=== PATIENT | female | born 1940 | race Caucasian/White ===

== ENCOUNTER 2019-05-08 19:54 | Inpatient (IN) | payer MEDICARE, MEDICAID, SELFPAY | END 2019-05-10 13:36 | disposition skilled nursing facility (03) | DRG 190 | LOC: MEDSURG 05-10 09:31 | PROVIDERS: Admitting Provider Internal Medicine; Emergency Provider Emergency Medicine; Family Provider Family Medicine; PCP Family Medicine; Referring Provider Family Medicine; Visit Provider Internal Medicine | DX: J44.1 Chronic obstructive pulmonary disease with (acute) exacerbation (principal); J96.21 Acute and chronic respiratory failure with hypoxia; J96.22 Acute and chronic respiratory failure with hypercapnia; Z68.41 Body mass index [BMI] 40.0-44.9, adult; I10 Essential (primary) hypertension; G89.29 Other chronic pain; M54.9 Dorsalgia, unspecified; E03.9 Hypothyroidism, unspecified; I25.10 Atherosclerotic heart disease of native coronary artery without angina pectoris; G47.33 Obstructive sleep apnea (adult) (pediatric); E78.5 Hyperlipidemia, unspecified; K21.9 Gastro-esophageal reflux disease without esophagitis; F41.8 Other specified anxiety disorders; D64.9 Anemia, unspecified; Z87.891 Personal history of nicotine dependence; E66.9 Obesity, unspecified ==

== ENCOUNTER 2019-07-12 10:40 | Inpatient (IN) | payer MEDICARE, MEDICAID, SELFPAY ==
[2019-07-12] VITALS (16 sets, daily range): BP systolic 85–152; BP diastolic 60–96; PULSE 90–109; RESP 15–25; TEMP 36.4–36.6; O2SAT 93–99; BMI 44.1
--- NOTE | 2019-07-12 10:45 | ED_ITS ---
Entered by Luz Blas, acting as scribe for Santiago Bower DO HPI - Altered Mental Status General: Chief Complaint: Altered Mental Status Stated Complaint: AMS Time Seen by Provider: 07/12/19 10:42 Source: EMS Mode of arrival: EMS Limitations: altered mental status History of Present Illness: HPI narrative: 78 yo female presents with altered mental status per nursing staff. per EMS the pt has not been wearing her C-pap machine at the detention. MD complaint: altered mental status and decreased responsiveness Onset (ago): day(s) (today , found by nursing staff) Timing confirmed by: other (nursing staff) Severity: moderate Consistency of symptoms: Getting Worse Associated symptoms: Reports other (altered mental status from not wearing COPD) Treatments prior to arrival: oxygen and other Review of Systems General: Reports: 10 or more systems reviewed and unremarkable except in HPI and below, ROS unobtainable due to medical condition and ROS unobtainable due to mental status [facility] ED PFSH: Medical History (Updated 07/12/19 @ 11:59 by Santiago Bower DO) History of COPD Social History Smoking and tobacco status: unknown if ever smoked Physical Exam Const: COMMON NORMALS: oriented x3 and alert HENMT: COMMON NORMALS: normocephalic, head/scalp atraumatic, hearing grossly normal bilaterally, external ears normal, EAC's normal, TM's normal bilaterally, external nose normal, nasal mucous membranes and turbinates normal, moist oral mucous membranes, oropharynx normal, dentition normal and gingiva normal HEAD & SCALP: normocephalic and atraumatic NOSE: external nose normal and nasal mucous membranes and turbinates normal EXTERNAL EAR: Yes external ears normal EXTERNAL AUDITORY CANAL: EAC's normal TYMPANIC MEMBRANE: TM's normal bilaterally Eye: COMMON NORMALS: PERRL, EOMs intact bilaterally, conjunctivae normal, no scleral icterus, no papilledema, normal visual weaver by confrontation and fundi normal bilaterally CONJUNCTIVA: Yes conjunctivae normal PUPIL: Yes PERRL DIRECT OPHTHALMOSCOPY: Yes no papilledema and Yes fundi normal bilaterally Neck/C-Spine: COMMON NORMALS: full ROM, no lymphadenopathy, supple, no meningeal signs, no JVD, thyroid normal and no carotid bruits THYROID: thyroid normal Chest: COMMONS NORMALS: inspection of chest normal and palpation of chest normal Cardio: COMMON NORMALS: no JVD, regular rate, regular rhythm, S1 normal heart sound, S2 normal heart sound, no gallops, no clicks, no murmurs, no rub and peripheral pulses 2+ throughout RATE: regular rate RHYTHM: regular rhythm HEART SOUNDS: S1 normal and S2 normal PERIPHERAL PULSES: pulses 2+ throughout GI: COMMON NORMALS: normal to inspection, nondistended, normoactive bowel sounds, soft to palpation, non-tender, no hepatosplenomegaly, no masses and no bruits PALPATION: Yes soft and Yes no hepatosplenomegaly : COMMON NORMALS: Yes no CVA tenderness and Yes external appearance normal BLADDER/KIDNEY EXAM: Yes no CVA tenderness Back/Pelvis: COMMON NORMALS: no CVA tenderness, thoracic and lumbar spine normal to inspection, no thoracic nor lumbar tenderness, thoraco-lumbar ROM normal and straight leg raise negative bilaterally Extremity: COMMON NORMALS: normal to inspection, full ROM, normal capillary refill, no joint enlargement, no clubbing, cyanosis or edema, no calf tenderness and no pedal edema Neuro: COMMON NORMALS: oriented x3 SENSORIUM/ORIENTATION: Yes alert MENINGEAL SIGNS: Yes no meningeal signs Skin: COMMON NORMALS: no rashes or lesions noted, no wounds, skin turgor normal, no jaundice, no petechiae and no mottling GENERAL SKIN EXAM: no rashes or lesions noted and turgor normal Course Vital Signs: Vital signs: Vital Signs Temperature 97.6 F 07/12/19 10:48 Pulse Rate 93 07/12/19 11:09 Respiratory Rate 22 H 07/12/19 10:48 Blood Pressure 124/76 07/12/19 10:48 Pulse Oximetry 94 07/12/19 11:09 MDM - Altered Mental Status Lab Data: Labs: Lab Results 07/12/19 07/12/19 07/12/19 Range/Units 10:42 11:10 11:13 WBC 11.0 H (4.0-10.0) 10^3/ uL RBC 4.09 L (4.1-5.3) 10^6/u L Hgb 12.4 (11.5-15.3) g/dL Hct 42.7 (37.0-47.0) % MCV 104.4 H (81-99) fL MCH 30.3 (28.0-34.0) pg MCHC 29.0 L (30.0-36.0) g/dL RDW 13.9 (12.1-15.1) % Plt Count 232 (130-400) 10^3/c mm MPV 11.0 H (7.4-10.4) fL Neut % (Auto) 82.5 % Lymph % (Auto) 8.5 % Wilkin % (Auto) 7.6 % Eos % (Auto) 0.5 % Baso % (Auto) 0.4 % Neut # (Auto) 9.1 H (1.8-7.7) 10^3/u L Lymph # (Auto) 0.9 (0.8-4.8) 10^3/u L Wilkin # (Auto) 0.8 (0.2-0.9) 10^3/u L Eos # (Auto) 0.1 (0.0-0.8) 10^3/u L Baso # (Auto) 0.0 (0.0-0.1) 10^3/u L Nucleated RBC % (a uto) 0 % Nucleated RBCs # 0.0 /100WBC Specimen Type Arterial Sample Site Radial, left ABG pH 7.27 L (7.35-7.45) ABG pCO2 97.1 H* (35-45) mmHg ABG pO2 65.1 L (80.0-100.0) mmH g ABG HCO3 44.3 H (22-26) mmol/L ABG Base Excess 13.0 H (-2.0-2.0) mmol/ L Casey Test Pos Hematocrit 40.7 (37-47) % O2 Delivery Device Nc O2 Liters/Min 3.0 % FiO2 32.0 % Chief Gauger ID gd Sodium (136-145) mmol/L Potassium (3.5-5.1) mmol/L Chloride (98-107) mmol/L Carbon Dioxide (22-29) mmol/L Anion Gap (5-19) BUN (8-23) mg/dL Creatinine (0.5-0.9) mg/dL Glucose (65-115) mg/dL Lactate (0.5-2.2) mmol/L Calcium (8.5-10.5) mg/dL Total Bilirubin (0.15-1.2) mg/dL AST (0-32) U/L ALT (0-33) U/L Alkaline Phosphata se (35-105) IU/L NT-Pro-B Natriuret Pep (0-450) pg/mL Total Protein (6.6-8.7) g/dL Albumin (3.5-5.2) g/dL Globulin (1.3-4.6) g/dL TSH (0.27-4.20) uIU/ mL Urine Color Yellow (Yellow) Urine Appearance Clear (CLEAR) Urine pH 5 (5-7) Ur Specific Gravit y 1.025 (1.005-1.030) Urine Protein Neg (Negative) Urine Glucose (UA) Norm (Normal) Urine Ketones Negative (Negative) Urine Blood Neg (Negative) Urine Nitrate Negative (Negative) Urine Bilirubin Neg (NEGATIVE) Urine Urobilinogen Norm (Negative) mg/dL Ur Leukocyte Estephanie ase Negative (Negative) 07/12/19 07/12/19 Range/Units 11:13 11:13 WBC (4.0-10.0) 10^3/ uL RBC (4.1-5.3) 10^6/u L Hgb (11.5-15.3) g/dL Hct (37.0-47.0) % MCV (81-99) fL MCH (28.0-34.0) pg MCHC (30.0-36.0) g/dL RDW (12.1-15.1) % Plt Count (130-400) 10^3/c mm MPV (7.4-10.4) fL Neut % (Auto) % Lymph % (Auto) % Wilkin % (Auto) % Eos % (Auto) % Baso % (Auto) % Neut # (Auto) (1.8-7.7) 10^3/u L Lymph # (Auto) (0.8-4.8) 10^3/u L Wilkin # (Auto) (0.2-0.9) 10^3/u L Eos # (Auto) (0.0-0.8) 10^3/u L Baso # (Auto) (0.0-0.1) 10^3/u L Nucleated RBC % (a uto) % Nucleated RBCs # /100WBC Specimen Type Sample Site ABG pH (7.35-7.45) ABG pCO2 (35-45) mmHg ABG pO2 (80.0-100.0) mmH g ABG HCO3 (22-26) mmol/L ABG Base Excess (-2.0-2.0) mmol/ L Casey Test Hematocrit (37-47) % O2 Delivery Device O2 Liters/Min % FiO2 % Chief Gauger ID Sodium 138 (136-145) mmol/L Potassium 5.0 (3.5-5.1) mmol/L Chloride 92 L (98-107) mmol/L Carbon Dioxide 37 H (22-29) mmol/L Anion Gap 14.0 (5-19) BUN 8 (8-23) mg/dL Creatinine 0.6 (0.5-0.9) mg/dL Glucose 173 H (65-115) mg/dL Lactate 1.3 (0.5-2.2) mmol/L Calcium 10.1 (8.5-10.5) mg/dL Total Bilirubin 0.3 (0.15-1.2) mg/dL AST 19 (0-32) U/L ALT 23 (0-33) U/L Alkaline Phosphata se 99 (35-105) IU/L NT-Pro-B Natriuret Pep 96 (0-450) pg/mL Total Protein 7.1 (6.6-8.7) g/dL Albumin 3.6 (3.5-5.2) g/dL Globulin 3.5 (1.3-4.6) g/dL TSH 1.31 (0.27-4.20) uIU/ mL Urine Color (Yellow) Urine Appearance (CLEAR) Urine pH (5-7) Ur Specific Gravit y (1.005-1.030) Urine Protein (Negative) Urine Glucose (UA) (Normal) Urine Ketones (Negative) Urine Blood (Negative) Urine Nitrate (Negative) Urine Bilirubin (NEGATIVE) Urine Urobilinogen (Negative) mg/dL Ur Leukocyte Estephanie ase (Negative) Discharge Plan Discharge Patient Disposition: Admitted As Inpatient Clinical Impression: Delirium due to general medical condition, Hypercarbia Altered mental status Qualifiers: Altered mental status type: stupor Qualified Code(s): R40.1 - Stupor Condition: Fair Referrals: Smiht Mallory MD [Primary Care Provider] - Coding Level of Care Code ED Furniture Sander for Chg Fwd Exam Comprehensive The documentation recorded by the Wan gerber Bridget Annette, accurately reflects the service I personally performed and the decisions made by me, Santiago Bower, Jul 12, 2019 10:40
--- NOTE | 2019-07-12 10:52 | CT_ITS ---
WS: [id number] CT HEAD NONCONTRAST HISTORY: ams TECHNIQUE: Contiguous axial imaging performed through the brain in 2.5 mm imaging. Bone and soft tiss ue windows. Sagittal and coronal reformats reviewed. All CT scans at [facility] use at le ast one of these dose optimization techniques: automated exposure control; mA and/or kV adjustment pe r patient size (includes targeted exams where dose is matched to clinical indication); or iterative r econstruction. DLP: 2161.11 mGy.cm COMPARISON: 03/01/2018 There is significant motion artifact throughout the brain which is causing significant difficulty dirk luate for subtle edema. There is mild loss of the briones-white matter differentiation. Majority of this could be based upon the motion. Structures remain midline. No hemorrhage is identified. No inferior displacement of the cere bellar tonsils. No subfalcine herniation. Ventricles: Third ventricle is measuring slightly smaller in caliber. Fourth ventricle remains widel y patent. Paranasal sinuses: Mucoperiosteal thickening in the LEFT sphenoid air cells. Mastoid air cells: Extensive soft tissue attenuation throughout the mastoid air cells, RIGHT greater than LEFT. Small amount of fluid and soft tissue extends into the RIGHT internal auditory canal. Calvarium and scalp: Hyperostosis frontalis interna. CT/CT head wo con* [id number] IMPRESSION: 1. Study is significantly limited by motion. 2. Loss of the briones-white matter differentiation may be due to motion or diffu se mild cerebral edema. Third ventricle appears slightly smaller caliber indica ting there could be some edema. There is no midline shift or herniation at this time. 3. Bilateral mastoiditis. More extensive disease on the RIGHT.
--- NOTE | 2019-07-12 10:52 | XR_ITS ---
WS: [id number] XR chest 1V portable [id number] REASON FOR EXAM: ams FINDINGS: Arteriosclerotic changes are seen in the arch the aorta. The heart is not enlarged. The trachea is deviated to the right side a lesion in the superior mediastinum cannot be excluded thi s was noted on previous exam. The heart is not enlarged. The lung weaver are well aerated. The azygos lobe is slightly prominent. XR/XR chest 1V portable [id number] IMPRESSION: Arteriosclerotic changes in the arch the aorta. The trachea is deviated toward the right side if symptoms suggest a thymoma con diesel power mechanic CT evaluation of the mediastinum.
[2019-07-12 11:01] LABS: ABG PH Result 7.27 (7.35-7.45); Arterial Blood Gas Hematocrit 40.7 % (37-47); Blood Gas Allen Test Pos; Blood Gas Sample Site Radial, left; Blood Gas Sample Type Arterial; HCO3 ABG 44.3 mmol/L (22-26); Oxygen Device NC; PO2 ABG 65.1 mmHg (80.0-100.0)
[2019-07-12 11:02] LABS: ABG PCO2 97.1 mmHg (35-45)
--- NOTE | 2019-07-12 11:17 | PC.NURSE ---
media monitor, pulse oximeter and NIBP monitor placed on patient; school bus monitor- Lead I, II and III; monitor alarms on.
--- NOTE | 2019-07-12 11:20 | PC.NURSE ---
PHYSICAL ASSESSMENT Chief Complaint: Altered mental status GENERAL / NEURO / PSYCH: Alert but confused SUZETTE COMA SCORE: 14- HEENT: No facial asymmetry noted. Mucous membranes are pink. RESPIRATORY: Diminished lung sounds bilaterally. Chest non-tender CVS: Capillary refill less than 2 seconds. Pulses within normal limits. GI / : Abdomen soft and nontender and normal bowel sounds. SKIN: Skin intact. Skin is warm and dry. Normal skin turgor. -
[2019-07-12 11:26] LABS: Basophils % 0.4 %; Eosinophils # 0.1 10^3/uL (0.0-0.8); Eosinophils % 0.5 %; Hematocrit 42.7 % (37.0-47.0); Hemoglobin 12.4 g/dL (11.5-15.3); Lymphocytes # 0.9 10^3/uL (0.8-4.8); Lymphocytes % 8.5 %; Mean Corpuscular Hemoglobin 30.3 pg (28.0-34.0); Mean Corpuscular Volume 104.4 fL (81-99); Monocytes # 0.8 10^3/uL (0.2-0.9); Monocytes % 7.6 %; Neutrophils # 9.1 10^3/uL (1.8-7.7); Neutrophils % 82.5 %; Nucleated Red Blood Cells % 0 %; Platelet Count 232 10^3/cmm (130-400); Red Blood Count 4.09 10^6/uL (4.1-5.3); Red Cell Distribution Width 13.9 % (12.1-15.1)
[2019-07-12 11:34] LABS: Add Urine Microscopic? NO
[2019-07-12 11:36] LABS: Lactate (Lactic Acid level) 1.3 mmol/L (0.5-2.2)
[2019-07-12 11:39] LABS: Bilirubin Urine Neg (NEGATIVE); Blood Urine Neg (Negative); Glucose Urine UA Norm (Normal); Ketones Urine Negative (Negative); Leukocyte Esterase Urine Negative (Negative); Nitrate Urine Negative (Negative); Protein Urine Neg (Negative); Specific Gravity, Urine 1.025 (1.005-1.030); Urine Appearance Clear (CLEAR); Urine Color Yellow (Yellow); Urobilinogen Urine Norm (Negative); pH Urine 5 (5-7)
[2019-07-12 11:46] LABS: Alanine Aminotransferase 23 U/L (0-33); Albumin Level 3.6 g/dL (3.5-5.2); Alkaline Phosphatase 99 IU/L (35-105); Aspartate Amino Transferase 19 U/L (0-32); Blood Urea Nitrogen 8 mg/dL (8-23); Calcium 10.1 mg/dL (8.5-10.5); Carbon Dioxide 37 mmol/L (22-29); Chloride 92 mmol/L (98-107); Globulin 3.5 g/dL (1.3-4.6); Glucose 173 mg/dL (65-115); NT Pro B Type Natriuretic Pept 96 pg/mL (0-450); Sodium 138 mmol/L (136-145); Thyroid Stimulating Hormone 1.31 uIU/mL (0.27-4.20); Total Bilirubin 0.3 mg/dL (0.15-1.2); Total Protein 7.1 g/dL (6.6-8.7)
--- NOTE | 2019-07-12 11:55 | PC.NURSE ---
Patient resting at this time. No needs.
[2019-07-12 14:20] LABS: Influenza A by IFA Negative (Negative); Influenza B by IFA Negative (Negative)
--- NOTE | 2019-07-12 14:46 | PC.NURSE ---
Vent settings: FI02 40%, IPAP 20 cmH20, EPAP 10 cmH20
--- NOTE | 2019-07-12 16:28 | CTR_ITS ---
PROCEDURE INFORMATION: Exam: CT Angiography Chest With Contrast Exam date and time: 07/12/2019 4:40 PM Age: 78 years old Clinical indication: Shortness of breath; Prior surgery; Surgery date: 6+ months; Surgery type: Gb; Additional info: Hypoxia TECHNIQUE: Imaging protocol: Computed tomographic angiography of the chest with intravenous contrast. 3D rendering: MIP and/or 3D reconstructed images were created by the technologist. Total DLP: 508.07 mGy-cm Radiation optimization: All CT scans at this facility use at least one of these dose optimization techniques: automated exposure control; mA and/or kV adjustment per patient size (includes targeted exams where dose is matched to clinical indication); or iterative reconstruction. Contrast material: OMNI 350; Contrast volume: 95 ml; Contrast route: IV; COMPARISON: CR XR chest 1V portable [id number] 07/12/2019 10:52 AM FINDINGS: Pulmonary arteries: Patient's body habitus limits detail assessment. No visible pulmonary embolism. Aorta: The thoracic aorta is nonaneurysmal. No visible intimal flap or dissection. Mild arteriosclerosis. Lungs: Minimal scar discoid atelectasis right lung apex. Diminished inspiratory effort. Minimal dependent atelectasis. Pleural space: Unremarkable. No pneumothorax. No pleural effusion. Heart: Unremarkable. No cardiomegaly. No pericardial effusion. Lymph nodes: Unremarkable. No enlarged lymph nodes. Bones/joints: Age-appropriate degenerative disease and degenerative disc disease of the spine. No visible acute skeletal osseous pathology identified. Soft tissues: Unremarkable. CT/CT angio chest PE protcl [id number] IMPRESSION: No visible pulmonary embolism this examination. Radiation Dose CTDIVOL = (mGy): DLP = 508.07 (mGy-cm)
--- NOTE | 2019-07-12 16:32 | P.HP_ITS ---
Providers/Chief Complaint Admitting Physician: Deja Radford DO Primary Care Provider: Smith Mallory MD Chief Complaint: AMS History of Present Illness Andie Cifuentes is a 78 year old female that [facility] due to increased work of breathing and confusion. Patient was seen and evaluated in the emergency department noted to have acute hypercapnic res piratory failure and placed on BiPAP. Difficult to obtain HPI from patient due to acute encephalopathy, she would answer some questions appropriately by shaking her head yes and no while on BiPAP. She denied any chest pain, no abdominal pain. Review of Systems General: Reports: ROS unobtainable due to medical condition Medications/Allergies Home Medications Medication Instructions Recorded Confirmed Last Taken Type A&D Topical Ointment See Rx Instructions .ROUTE .COMPLEX 07/12/19 07/12/19 Unknown History acetaminophen [Tylenol] 650 mg PO Q4H PRN 07/12/19 07/12/19 Unknown History acetaminophen [Tylenol] 650 mg PO Q8H 07/12/19 07/12/19 07/12/19 01:00 History albuterol sulfate See Rx Instructions .ROUTE .COMPLEX 07/12/19 07/12/19 07/09/19 History artificial tears(hypromellose) See Rx Instructions .ROUTE .COMPLEX 07/12/19 07/12/19 07/11/19 History bisacodyl 10 mg NH DAILY PRN 07/12/19 07/12/19 Unknown History citalopram [Celexa] 20 mg PO DAILY 07/12/19 07/12/19 07/11/19 History cyanocobalamin (vitamin B-12) 1,000 mcg IM Q30D 07/12/19 07/12/19 06/19/19 History dextromethorphan-guaifenesin 10 ml PO Q8H PRN 07/12/19 07/12/19 Unknown History [Robitussin Cough-Chest Andrew DM] diclofenac sodium See Rx Instructions .ROUTE .COMPLEX 07/12/19 07/12/19 06/21/19 History docusate sodium [Colace] See Rx Instructions .ROUTE .COMPLEX 07/12/19 07/12/19 07/11/19 History fluticasone propion-salmeterol 1 inh INHALATION BID 07/12/19 07/12/19 07/11/19 History [Advair Diskus] fluticasone propionate [Flonase 1 spray INTRANASAL DAILY 07/12/19 07/12/19 07/11/19 History Allergy Relief] folic acid 1 mg PO DAILY 07/12/19 07/12/19 07/11/19 History gabapentin 300 mg PO TID 07/12/19 07/12/19 07/12/19 01:00 History glycerin (adult) 1 supp NH DAILY PRN 07/12/19 07/12/19 Unknown History guaifenesin 200 mg PO QID PRN 07/12/19 07/12/19 Unknown History iron 325 mg PO BID 07/12/19 07/12/19 07/11/19 History levothyroxine 37.5 mcg PO DAILY 07/12/19 07/12/19 07/12/19 05:41 History loratadine 10 mg PO DAILY 07/12/19 07/12/19 07/11/19 10:00 History magnesium hydroxide [Milk of 30 ml PO PRN 07/12/19 07/12/19 Unknown History Magnesia] metoprolol tartrate 25 mg PO BID 07/12/19 07/12/19 07/11/19 History montelukast [Singulair] 10 mg PO DAILY 07/12/19 07/12/19 07/11/19 History nitroglycerin [Nitrostat] 0.4 mg SUBLINGUAL Q5M PRN 07/12/19 07/12/19 Unknown History ondansetron HCl [Zofran] 4 mg PO TID PRN 07/12/19 07/12/19 Unknown History pantoprazole [Protonix] 40 mg PO DAILY 07/12/19 07/12/19 07/11/19 History rosuvastatin [Crestor] 10 mg PO DAILY 07/12/19 07/12/19 07/11/19 History simethicone [Gas Relief See Rx Instructions .ROUTE .COMPLEX 07/12/19 07/12/19 Unknown History (simethicone)] skin cleanser,general [Baby Wash] See Rx Instructions .ROUTE .COMPLEX 07/12/19 07/12/19 07/11/19 History sodium phosphates [Fleet Enema] 118 ml NH DAILY PRN 07/12/19 07/12/19 Unknown History sulfasalazine 500 mg PO BID 07/12/19 07/12/19 07/11/19 History tamsulosin [Flomax] 0.4 mg PO DAILY 07/12/19 07/12/19 07/11/19 History tramadol [Ultram] 50 mg PO BEDTIME 07/12/19 07/12/19 07/11/19 21:32 History tramadol [Ultram] 50 mg PO TID PRN 07/12/19 07/12/19 06/26/19 History trazodone 75 mg PO BEDTIME 07/12/19 07/12/19 07/11/19 History Allergies Allergy/AdvReac Type Severity Reaction Status Date / Time aspirin Allergy Unknown Unknown Verified 07/12/19 11:58 celecoxib [From Celebrex] Allergy Unknown Unknown Verified 07/12/19 11:58 latex Allergy Unknown Unknown Verified 07/12/19 11:58 PFSH Acute PFSH: Medical History (Updated 07/12/19 @ 16:41 by Deja Radford DO) Alzheimer's dementia Chronic diastolic (congestive) heart failure Coronary artery disease History of COPD Hyperlipidemia Hypertension Hypothyroidism Normocytic anemia Obesity Obstructive sleep apnea Rheumatoid arthritis Surgical History (Updated 07/12/19 @ 16:41 by Deja Radford DO) History of back surgery History of hemorrhoidectomy History of hysterectomy Hx of cholecystectomy Family History (Updated 07/12/19 @ 16:41 by Deja Radford DO) Mother Diabetes Father Diabetes CAD (coronary artery disease) Social History (Updated 07/12/19 @ 16:42 by Deja Radford DO) Smoking and tobacco status: unknown if ever smoked Alcohol intake: unknown Substance/Drug Use: unknown Housing: Residential Vitals/I&O/Wt Last Vital Signs Temp 97.9 F 07/12/19 15:44 Pulse 97 07/12/19 15:44 Resp 20 H 07/12/19 15:44 BP 151/79 07/12/19 15:44 Pulse Ox 96 07/12/19 15:44 Weight last 48 hrs Weight 120.202 kg Physical Exam Const: GENERAL APPEARANCE: lethargic ORIENTATION/CONSCIOUSNESS: Yes lethargic HENMT: COMMON NORMALS: normocephalic and head/scalp atraumatic HEAD & SCA LP: normocephalic and atraumatic Eye: COMMON NORMALS: PERRL PUPIL: Yes PERRL Neck/C-Spine: COMMON NORMALS: supple GENERAL: Yes normal visual inspection Resp: OTHER: BiPAP in place with diminished breath sounds bilaterally and end expiratory wheezing Cardio: COMMON NORMALS: regular rate and regular rhythm RATE: regular rate RHYTHM: regular rhythm HEART SOUNDS: murmur systolic (Faint) GI: COMMON NORMALS: soft to palpation and non-tender INSPECTION: No abdominal distension AUSCULTATION: Yes normoactive bowel sounds PALPATION: Yes soft Extremity: NARRATIVE EXTREMITY EXAM: Nonpitting edema in the lower extremities bilaterally Neuro: SENSORIUM/ORIENTATION: Yes lethargic OTHER: Will shake her head yes and no to some questions. Nonambulatory at baseline. Skin: NARRATIVE SKIN EXAM: Dry skin in the lower extremities bilaterally Urinary Catheter Management^: Callejas: Cath Placed During This Visit: yes Urethral Indwelling: Yes Reason for Continuing Indwelling Catheter: Other Urinary Catheter Date of Insertion: 07/12/19 Urinary Catheter Time of Insertion: 11:16 Data : 07/12/19 11:13 07/12/19 11:13 Micro: Microbiology 07/12/19 11:05 Blood Culture - Preliminary Blood SPECIMEN COLLECTED 07/12/19 11:13 Blood Culture - Preliminary Blood SPECIMEN COLLECTED CT Head: Radiologist's impression: IMPRESSION: 1. Study is significantly limited by motion. 2. Loss of the briones-white matter differentiation may be due to motion or diffuse mild cerebral edema. Third ventricle appears slightly smaller caliber indicating there could be some edema. There is no midline shift or herniation at this time. 3. Bilateral mastoiditis. More extensive disease on the RIGHT. CXR: Radiologist's impression: IMPRESSION: Arteriosclerotic changes in the arch the aorta. The trachea is deviated toward the right side if symptoms suggest a thymoma consider CT evaluation of the mediastinum. A&P Assessment and plan (1) Altered mental status: Secondary to hypercapnia Continue with BiPAP therapy Serial neurologic checks CT head with concern of loss of briones to white matter differentiation due to motion artifact or mild diffuse cerebral edema. Will repeat CT scan of the head in the morning if indicated. Bilateral mastoiditis, will place on Augmentin Status: Acute Qualifiers: Altered mental status type: stupor Qualified Code(s): R40.1 - Stupor Code(s): R41.82 - Altered mental status, unspecified (2) Hypercarbia: COPD exacerbation with acute on chronic hypoxic and hypercapnic respiratory failure. Showed improvement on BiPAP. Will admit for further evaluation and treatment Status: Acute Code(s): R06.89 - Other abnormalities of breathing Additional A&P Information Acute respiratory failure with hypoxia and hypercapnia: Acute on chronic respiratory failure. Patient is on 4 L of oxygen by nasal cannula at baseline. She does have BiPAP that she uses at night. Believed to be secondary to COPD exacerbation, continue with Solu-Medrol and doxycycline. COPD with acute exacerbation: Continue with Solu-Medrol and doxycycline, respiratory therapy to assess and treat, oxygen per protocol. Continue with BiPAP at this time and wean as tolerated. Rheumatoid arthritis: Previously on methotrexate, did not see on her [facility] records that she has been on this recently Nonambulatory at baseline Chronic anemia: Hemoglobin much improved to 12.4 today Concern for hypoxia with chest x-ray findings of some tracheal deviation: We will further evaluate with CT scan of the chest Mastoiditis on CT scan of the head, will continue to treat with Augmentin Mild diffuse findings on CT scan of the head concerning for motion artifact versus mild diffuse edema: Patient seems to be improving with her mentation on BiPAP, repeat CT scan of the head if indicated. Continue neurologic checks. DVT prophylaxis: Lovenox Diet: N.p.o. until more alert CODE STATUS: DO NOT RESUSCITATE Attestations Medical Necessity Statement*: Patient requires hospitalization due to acute on chronic respiratory failure with hypercapnia and COPD exacerbation. Expected stay greater than 2 midnights Coding Level of Care Code Acute Machinist General for Jordi Robledo Diagnoses Altered mental status R40.1 Altered mental status type: stupor Hypercarbia R06.89
[2019-07-12] MEDS: iohexol 350 mg/mL 100 mL Btl 95 ML IV (17:05)
[2019-07-12] MEDS: enoxaparin 40 mg/0.4 mL Syringe SUBCUT (17:33)
[2019-07-12] MEDS: amoxicillin-clav 875-125 mg Tablet 1 TAB PO (17:34)
[2019-07-12] MEDS: ipratropium-albuterol 3 mL Neb INHALATION ×2 (18:20→23:16)
--- NOTE | 2019-07-12 18:30 | PC.NURSE ---
Introduction of staff and report received. Attempt being made by Lora Frausto RN to re-establish an IV site.
[2019-07-12] MEDS: doxycycline 100 MG in sodium chloride 0.9% (plus) 100 ML IV (19:15)
--- NOTE | 2019-07-12 21:47 | PC.NURSE ---
Pt moved to new room 275 for privacy need.
[2019-07-12] MEDS: HYDROcodone-acetaminophen 5-325 mg Tablet 1 TAB PO (23:19)
[2019-07-13] VITALS (11 sets, daily range): BP systolic 121–176; BP diastolic 55–80; PULSE 94–112; RESP 16–26; TEMP 36.4–37.2; O2SAT 91–97
[2019-07-13 04:01] LABS: Anion Gap 16.5 (5-19); Blood Urea Nitrogen 9 mg/dL (8-23); Calcium 10.3 mg/dL (8.5-10.5); Carbon Dioxide 36 mmol/L (22-29); Chloride 89 mmol/L (98-107); Glucose 257 mg/dL (65-115); Osmolality Calculated 289 mOsm/kg (285-295); Potassium 4.5 mmol/L (3.5-5.1); Sodium 137 mmol/L (136-145)
[2019-07-13] MEDS: ipratropium-albuterol 3 mL Neb INHALATION (08:03)
[2019-07-13] MEDS: amoxicillin-clav 875-125 mg Tablet 1 TAB PO ×2 (09:43→17:25)
[2019-07-13] MEDS: doxycycline 100 MG in sodium chloride 0.9% (plus) 100 ML IV ×2 (10:08→21:07)
--- NOTE | 2019-07-13 12:20 | PM.PN ---
Subjective Subjective: Interval history: Patient awake in bed at time of exam today. She denies any chest pain. Denies any abdominal pain. Reports occasional cough. Sitter at bedside due to patient pulling out IVs yesterday. Vitals/I&O/Wt Last Vital Signs Temp 98.9 F 07/13/19 11:05 Pulse 107 H 07/13/19 11:05 Resp 20 H 07/13/19 11:05 BP 125/67 07/13/19 11:05 Pulse Ox 92 07/13/19 11:05 07/12/19 07/13/19 07/13/19 22:59 06:59 14:59 Intake Total 480 / 480 Output Total 550 / 550 Balance 480 / 480 -550 / -70 Weight last 48 hrs Weight 118.643 kg Weight 118.643 kg Weight 120.202 kg Physical Exam Const: COMMON NORMALS: alert HENMT: COMMON NORMALS: normocephalic and head/scalp atraumatic HEAD & SCALP: normocephalic and atraumatic Eye: COMMON NORMALS: PERRL PUPIL: Yes PERRL Neck/C-Spine: COMMON NORMALS: supple GENERAL: Yes normal visual inspection Resp: OTHER: Nasal cannula in place, diminished breath sounds bilaterally with faint expiratory wheezing Cardio: COMMON NORMALS: regular rate and regular rhythm RATE: regular rate RHYTHM: regular rhythm HEART SOUNDS: murmur systolic (Faint) GI: COMMON NORMALS: soft to palpation and non-tender INSPECTION: No abdominal distension AUSCULTATION: Yes normoactive bowel sounds PALPATION: Yes soft Extremity: NARRATIVE EXTREMITY EXAM: Nonpitting edema in the lower extremities bilaterally Neuro: SENSORIUM/ORIENTATION: Yes alert OTHER: Nonambulatory at baseline, [place] lift dependent. More alert today and answering most questions appropriately with yes or no answers Psych: COMMON NORMALS: mental status grossly normal and cooperative Skin: COMMON NORMALS: no rashes or lesions noted NARRATIVE SKIN EXAM: Dry skin in the lower extremities bilaterally GENERAL SKIN EXAM: no rashes or lesions noted Urinary Catheter Management^: Callejas: Cath Placed During This Visit: yes Urethral Indwelling: Yes Reason for Continuing Indwelling Catheter: Other Urinary Catheter Date of Insertion: 07/12/19 Urinary Catheter Time of Insertion: 11:16 Data : 07/12/19 11:13 07/13/19 03:24 Micro: Microbiology 07/12/19 11:05 Blood Culture - Preliminary Blood NEGATIVE TO DATE 07/12/19 11:13 Blood Culture - Preliminary Blood NEGATIVE TO DATE A&P Assessment and plan (1) Altered mental status: Improved today. Continue with BiPAP while sleeping, patient does have a home BiPAP This is believed to be secondary to hypercapnia CT head with concern of loss of briones to white matter differentiation due to motion artifact or mild diffuse cerebral edema. We will hold off on repeat CT scan at this time due to patient's significant improvement with BiPAP Status: Acute Qualifiers: Altered mental status type: stupor Qualified Code(s): R40.1 - Stupor Code(s): R41.82 - Altered mental status, unspecified (2) Hypercarbia: COPD exacerbation with acute on chronic hypoxic and hypercapnic respiratory failure. Continue with doxycycline, transition from Solu-Medrol to prednisone today. Status: Acute Code(s): R06.89 - Other abnormalities of breathing Additional A&P Information Acute respiratory failure with hypoxia and hypercapnia: Acute on chronic respiratory failure. Patient is on 4 L of oxygen by nasal cannula at baseline. She does have BiPAP that she uses at night. Believed to be secondary to COPD exacerbation, transition to prednisone and continue on doxycycline COPD with acute exacerbation: Improved. Continue with BiPAP each night per home settings. Continue to wean oxygen as tolerated with a goal oxygen saturation of 90 to 92% Rheumatoid arthritis: Previously on methotrexate, did not see on her skilled nursing records that she has been on this recently Nonambulatory at baseline Chronic anemia: Hemoglobin much improved to 12.4 today Concern for hypoxia with chest x-ray findings of some tracheal deviation: We will further evaluate with CT scan of the chest Mastoiditis on CT scan of the head, will continue to treat with Augmentin Mild diffuse findings on CT scan of the head concerning for motion artifact versus mild diffuse edema: Patient seems to be improving with her mentation on BiPAP, repeat CT scan of the head if indicated. Continue neurologic checks. DVT prophylaxis: Lovenox Diet: Mechanical soft diet CODE STATUS: DO NOT RESUSCITATE Attestations Medical Necessity Statement*: Patient requires continued hospitalization due to acute encephalopathy secondary to COPD exacerbation and hypercapnia. Improved today but requires continued hospitalization Coding Level of Care Code Acute Cell Reliner for Chg Fwd Diagnoses Altered mental status R40.1 Altered mental status type: stupor Hypercarbia R06.89
--- NOTE | 2019-07-13 13:47 | PC.NURSE ---
I was going to feed the patient. i gave her a bite of ground beef with gravy, She rolled it around in her mouth then spit it out. I then tried the lemon pie. She took a bite and then moved it around a little bit ut would not swallow it. she spit it out. I then tried a drink of milk with a straw. she sucked on the straw took a drink this spit it out. i then stopped and reported this to the nurse
--- NOTE | 2019-07-13 15:15 | PC.PT ---
patient is [place] resident where she is a yared lift transfer though refuses except for showers.
[2019-07-13] MEDS: enoxaparin 40 mg/0.4 mL Syringe SUBCUT (17:25)
[2019-07-13] MEDS: HYDROcodone-acetaminophen 5-325 mg Tablet 1 TAB PO (23:51)
[2019-07-14 03:49] VITALS: BP 142/73; PULSE 95; RESP 19; TEMP 37; O2SAT 90
[2019-07-14 05:28] LABS: Anion Gap 19.6 (5-19); Blood Urea Nitrogen 14 mg/dL (8-23); Calcium 10.3 mg/dL (8.5-10.5); Carbon Dioxide 33 mmol/L (22-29); Chloride 93 mmol/L (98-107); Glucose 205 mg/dL (65-115); Osmolality Calculated 296 mOsm/kg (285-295); Potassium 3.6 mmol/L (3.5-5.1); Sodium 142 mmol/L (136-145)
[2019-07-14 05:31] LABS: Basophils % 0.3 %; Hematocrit 38.8 % (37.0-47.0); Hemoglobin 11.8 g/dL (11.5-15.3); Lymphocytes # 1.4 10^3/uL (0.8-4.8); Lymphocytes % 9.8 %; Mean Corpuscular HGB Conc 30.4 g/dL (30.0-36.0); Mean Corpuscular Hemoglobin 29.2 pg (28.0-34.0); Mean Platelet Volume 11.6 fL (7.4-10.4); Monocytes # 1.8 10^3/uL (0.2-0.9); Monocytes % 12.8 %; Neutrophils % 76.6 %; Nucleated Red Blood Cells % 0 %; Platelet Count 280 10^3/cmm (130-400); Red Blood Count 4.04 10^6/uL (4.1-5.3); Red Cell Distribution Width 14.9 % (12.1-15.1); White Blood Count 14.3 10^3/uL (4.0-10.0)
[2019-07-14 07:27] VITALS: BP 137/84; PULSE 110; RESP 20; TEMP 37.1; O2SAT 97
[2019-07-14] MEDS: predniSONE 20 mg Tablet 40 MG PO (08:22)
[2019-07-14] MEDS: amoxicillin-clav 875-125 mg Tablet 1 TAB PO (08:22)
[2019-07-14 09:06] VITALS: PULSE 107; RESP 18; O2SAT 97
[2019-07-14 09:11] VITALS: PULSE 105
[2019-07-14] MEDS: ipratropium-albuterol 3 mL Neb INHALATION (09:17)
[2019-07-14] MEDS: HYDROcodone-acetaminophen 5-325 mg Tablet 1 TAB PO (10:22)
[2019-07-14 11:21] VITALS: BP 156/86; PULSE 103; RESP 19; TEMP 37.3; O2SAT 95
--- NOTE | 2019-07-14 11:51 | P.DS_ITS ---
Discharge Providers Date of Admission: 07/12/19 14:21 Date of Discharge: July 14, 2019 Attending Provider at Admission: Deja Radford DO Attending Provider at Discharge: Deja Radford DO Primary Care Provider: Smith Mallory MD Diagnoses at Discharge Discharge Diagnosis (1) Altered mental status: Status: Acute Qualifiers: Altered mental status type: stupor Qualified Code(s): R40.1 - Stupor (2) Hypercarbia: Status: Acute Reason for Visit Reason for Visit: Reason For Visit: AMS Hospital Course Hospital Course: Patient was seen and evaluated in the emergency department and admitted due to concern for acute hypercapnic respiratory failure and acute encephalopathy. She was admitted to medical surgical floor and placed on BiPAP. She had continued improvement on this. She was given IV antibiotics and IV steroids and ultimately transitioned to oral. She continued to improve. She was noted to have question of mastoiditis on CT scan of the head and remained on Augmentin. She continued to improve. CT head was not repeated due to patient's significant clinical improvement with BiPAP, there was initial question for mild diffuse edema, however this was believed to be motion artifact. Patient's respiratory status continued to improve and she was weaned to oxygen by nasal cannula, 2.5 L which was improved from her baseline. On date of discharge she was awake and alert and conversing, speaking in complete sentences. She denied any chest pain or shortness of breath. 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 Physical Exam Const: COMMON NORMALS: alert HENMT: COMMON NORMALS: normocephalic and head/scalp atraumatic HEAD & SCALP: normocephalic and atraumatic Eye: COMMON NORMALS: PERRL PUPIL: Yes PERRL Neck/C-Spine: COMMON NORMALS: supple GENERAL: Yes normal visual inspection Resp: OTHER: Nasal cannula in place, diminished breath sounds bilaterally with faint expiratory wheezing Cardio: COMMON NORMALS: regular rate and regular rhythm RATE: regular rate RHYTHM: regular rhythm HEART SOUNDS: murmur systolic (Faint) GI: COMMON NORMALS: soft to palpation and non-tender INSPECTION: No abdominal distension AUSCULTATION: Yes normoactive bowel sounds PALPATION: Yes soft Extremity: NARRATIVE EXTREMITY EXAM: Nonpitting edema in the lower extremities bilaterally Neuro: SENSORIUM/ORIENTATION: Yes alert OTHER: Nonambulatory at baseline, [place] lift dependent. Awake and alert today answering questions in complete sentences Psych: COMMON NORMALS: mental status grossly normal and cooperative Skin: COMMON NORMALS: no rashes or lesions noted NARRATIVE SKIN EXAM: Dry skin in the lower extremities bilaterally GENERAL SKIN EXAM: no rashes or lesions noted Urinary Catheter Management^: Callejas: Cath Placed During This Visit: yes Urethral Indwelling: Yes Reason for Continuing Indwelling Catheter: Other Urinary Catheter Date of Insertion: 07/12/19 Urinary Catheter Time of Insertion: 11:16 Discharge Data Data Completed and Pending: Completed Studies During Hospitalization Category Date Time Status CT angio chest PE protcl [id number] Urge nt Cat Scan 07/12/19 16:[address] head wo con* 7 0450 Urgent Cat Scan 07/12/19 10:52 Completed XR chest 1V madan ble [id number] Urgent Exams 07/12/19 10:52 Completed Pending at discharge Category Date Time Status Blood Culture Sta t Lab 07/12/19 11:05 Results Labs from last 24 hours 07/14/19 07/14/19 04:30 04:30 WBC 14.3 H RBC 4.04 L Hgb 11.8 Hct 38.8 MCV 96.0 MCH 29.2 MCHC 30.4 RDW 14.9 Plt Count 280 MPV 11.6 H Neut % (Auto) 76.6 Lymph % (Auto) 9.8 [place] % (Auto) 12.8 Eos % (Auto) 0.0 Baso % (Auto) 0.3 Neut # (Auto) 11.0 H Lymph # (Auto) 1.4 [place] # (Auto) 1.8 H Eos # (Auto) 0.0 Baso # (Auto) 0.0 Nucleated RBC % (a uto) 0 Nucleated RBCs # 0.0 Sodium 142 Potassium 3.6 Chloride 93 L Carbon Dioxide 33 H Anion Gap 19.6 H BUN 14 Creatinine 0.7 Glucose 205 H Calculated Osmolal ity 296 H Calcium 10.3 Vitals: Last Vital Signs Temp 99.2 F 07/14/19 11:21 Pulse 103 H 07/14/19 11:21 Resp 19 H 07/14/19 11:21 BP 156/86 07/14/19 11:21 Pulse Ox 95 07/14/19 11:21 Discharge Plan Discharge Patient Disposition: Xf SNF Condition: Stable Prescriptions: New prednisone 20 mg Tablet 40 mg PO DAILY 4 Days Qty: 8 RF: 0 amoxicillin-pot clavulanate 875-125 mg Tablet 1 tab PO BID 12 Days Qty: 24 RF: 0 Continued A&D Topical Ointment See Rx Instructions .ROUTE .COMPLEX RF: 0 Advair Diskus 250-50 mcg/dose Blister With Device 1 inh INHALATION BID RF: 0 Tylenol 325 mg Tablet 650 mg PO Q4H PRN (Reason: Pain) RF: 0 Tylenol 325 mg Tablet 650 mg PO Q8H RF: 0 sulfasalazine 500 mg Tablet 500 mg PO BID RF: 0 Zofran 4 mg Tablet 4 mg PO TID PRN (Reason: Nausea) RF: 0 Gas Relief (simethicone) 125 mg Capsule See Rx Instructions .ROUTE .COMPLEX RF: 0 Ultram 50 mg Tablet 50 mg PO TID PRN (Reason: Pain) RF: 0 Ultram 50 mg Tablet 50 mg PO BEDTIME RF: 0 guaifenesin 100 mg/5 mL Liquid 200 mg PO QID PRN (Reason: Cough) RF: 0 levothyroxine 75 mcg Tablet 37.5 mcg PO DAILY RF: 0 Celexa 20 mg Tablet 20 mg PO DAILY RF: 0 Milk of Magnesia 400 mg/5 mL Suspension 30 ml PO PRN RF: 0 Flomax 0.4 mg Capsule 0.4 mg PO DAILY RF: 0 bisacodyl 10 mg Suppository 10 mg CA DAILY PRN (Reason: Constipation) RF: 0 Protonix 40 mg Tablet,Delayed Release (Dr/Ec) 40 mg PO DAILY RF: 0 iron 325 mg (65 mg iron) Tablet 325 mg PO BID RF: 0 Fleet Enema 19-7 gram/118 mL Enema 118 ml CA DAILY PRN (Reason: Constipation) RF: 0 Nitrostat 0.4 mg Tablet, Sublingual 0.4 mg SUBLINGUAL Q5M PRN (Reason: Chest Pain) RF: 0 Colace 100 mg Capsule See Rx Instructions .ROUTE .COMPLEX RF: 0 gabapentin 300 mg Capsule 300 mg PO TID RF: 0 folic acid 1 mg Tablet 1 mg PO DAILY RF: 0 Singulair 10 mg Tablet 10 mg PO DAILY RF: 0 Flonase Allergy Relief 50 mcg/actuation Tobias,Suspension 1 spray INTRANASAL DAILY RF: 0 loratadine 10 mg Tablet 10 mg PO DAILY RF: 0 Baby Wash Cleanser See Rx Instructions .ROUTE .COMPLEX RF: 0 Crestor 10 mg Tablet 10 mg PO DAILY RF: 0 metoprolol tartrate 25 mg Tablet 25 mg PO BID RF: 0 glycerin (adult) Suppository 1 supp CA DAILY PRN (Reason: Constipation) RF: 0 albuterol sulfate 2.5 mg/0.5 mL Solution For Nebulization See Rx Instructions .ROUTE .COMPLEX RF: 0 diclofenac sodium 1 % Gel See Rx Instructions .ROUTE .COMPLEX RF: 0 cyanocobalamin (vitamin B-12) 1,000 mcg/mL Kit 1,000 mcg IM Q30D RF: 0 Robitussin Cough-Chest Andrew DM 5-50 mg/5 mL Liquid 10 ml PO Q8H PRN (Reason: Cough) RF: 0 artificial tears(hypromellose) See Rx Instructions .ROUTE .COMPLEX RF: 0 trazodone 75 mg PO BEDTIME RF: 0 Discharge Orders: Discharge Order (Routine); Ordered 07/14/19 Ordered By: Deja Radford Referrals: Smith Mallory MD [Primary Care Provider] - 4-7 days Discharge Diet: Advance as tolerated and Soft Mechanical Discharge Activity: Resume usual activity Activity Restrictions/Additional Instructions: Continue with oxygen by nasal cannula, wean oxygen as tolerated to a goal oxygen saturation of 90 to 92% Continue with home BiPAP at night Discharged with Augmentin twice daily for 12 additional days Discharge with prednisone 40 mg daily for 4 additional days Continue with oxygen per protocol as above Call your physician or present to the ER for any acute illness or concern Discharge Attestations Time Spent in Discharge Care*: greater than 30 min Quality Metrics Clinical Quality Measures During this hospital stay, did patient experience: None Coding Level of Care Code Acute Water Softener Servicer for Chg Fwd Diagnoses Altered mental status R40.1 Altered mental status type: stupor Hypercarbia R06.89
[2019-07-14 12:24] VITALS: BP 156/86; PULSE 103; RESP 19; TEMP 37.3; O2SAT 95
--- NOTE | 2019-07-14 16:56 | PC.NURSE ---
report called report to lise kaur and iv and nagy taken out by student nurse. 10ml taken out of nagy balloon. pt tolerated it well.
== END 2019-07-14 16:00 | disposition skilled nursing facility (03) | DRG 190 ==
LOC: ER 14:03 → MEDSURG 15:07
PROVIDERS: Admitting Provider Family Medicine; Emergency Provider Family Medicine; Family Provider Family Medicine; PCP Family Medicine; Visit Provider Family Medicine
DX: J44.1 Chronic obstructive pulmonary disease with (acute) exacerbation (principal); J96.22 Acute and chronic respiratory failure with hypercapnia; J96.21 Acute and chronic respiratory failure with hypoxia; I50.32 Chronic diastolic (congestive) heart failure; G93.40 Encephalopathy, unspecified; Z68.41 Body mass index [BMI] 40.0-44.9, adult; Z88.6 Allergy status to analgesic agent; Z91.040 Latex allergy status; G30.9 Alzheimer's disease, unspecified; F02.80 Dementia in other diseases classified elsewhere, unspecified severity, without behavioral disturbance, psychotic disturbance, mood disturbance, and anxiety; E03.9 Hypothyroidism, unspecified; E66.9 Obesity, unspecified; E78.5 Hyperlipidemia, unspecified; G47.33 Obstructive sleep apnea (adult) (pediatric); M06.9 Rheumatoid arthritis, unspecified; H70.90 Unspecified mastoiditis, unspecified ear; Z79.51 Long term (current) use of inhaled steroids; Z79.899 Other long term (current) drug therapy; I11.0 Hypertensive heart disease with heart failure; I25.10 Atherosclerotic heart disease of native coronary artery without angina pectoris; Z79.890 Hormone replacement therapy
CPT/HCPCS: 12345; 36415; 36600; 51702; 70450; 71045; 71275; 80048; 80053; 81003; 82803; 83605; 83880; 84443; 85025; 87040; 87804; 92523; 92526; 92610; 94640; 94660; 94664; 96372; 96375; 99282; J1650; J2930; J3490; J7050; J7512; Q9967

== ENCOUNTER 2019-09-26 09:31 | Inpatient (IN) | payer MEDICARE, MEDICAID, SELFPAY ==
[2019-09-26] VITALS (14 sets, daily range): BP systolic 86–164; BP diastolic 50–87; PULSE 70–92; RESP 16–24; TEMP 36.4–37.4; O2SAT 88–95; BMI 41.5
--- NOTE | 2019-09-26 09:51 | XR_ITS ---
WS: [id number] Portable AP upright chest, 09/26/2019 Clinical Data: dyspnea/cough Comparison: Portable chest, 07/12/2019 Findings: No nodules, masses or effusions are seen. The heart is normal. The pulmonary vascularity is not increased. No pneumonia or pneumothorax is seen. The aortic arch and descending aorta show calci fication and tortuosity. Monitor leads are on the chest wall. XR/XR chest 1V portable [id number] Impression: Atherosclerosis.
--- NOTE | 2019-09-26 09:51 | ECG_ITS ---
Measurements Intervals [place] Rate: 78 P: 52 HI: 184 QRS: -47 QRSD: 89 T: -1 QT: 386 QTc: 441 SINUS RHYTHM LEFT AXIS DEVIATION [QRS AXIS < -30] ANTEROSEPTAL MYOCARDIAL INFARCTION , OF INDETERMINATE AGE [40+ ms Q WAVE IN V1-V4] Compared to ECG 05/08/2019 17:12:57 No significant changes Electronically Signed On 09-26-2019 19:45:43 CDT by Pao Mendoza M.D. [email or web address]
--- NOTE | 2019-09-26 09:52 | W.ED.SOB ---
HPI - SOB/Dyspnea General: Chief Complaint: Shortness of Breath/Dyspnea Stated Complaint: ams Time Seen by Provider: 09/26/19 09:38 History of Present Illness: HPI Narrative: 78-year-old female presents to the emergency room via EMS from [facility]. She is dyspneic reporting hypoxia at the group home increased her oxygen sats she is chronically reliant on BiPAP but very noncompliant with it due to her dementia. They did not however on BiPAP when she was picked up. On talking the patient she denies chest pain fever sweats chills or productive cough does sound like she is orthopneic. She has had this multiple times in the past. History is limited due to her dementia most of the history is from EMS and group home reports as well as her old charts. MD elicited complaint: shortness of breath Pertinent past history: COPD Onset (ago): hour(s) Timing: constant Severity: severe Exacerbating factors: lying flat and movement Relieving factors: oxygen, rest and other (BiPAP) Known history of: COPD Associated symptoms: Deny abdominal pain, chest pain, fever(s), nausea, palpitations, syncope or vomiting Treatment prior to arrival: oxygen and other (Out of hospital BiPAP) Review of Systems Const: Denies: fever(s), chills, body aches, fatigue, malaise or night sweats ENMT: Denies: throat pain, oral sores, dental pain, nasal discharge or nasal congestion Card: Denies: chest pain, palpitations, irregular heart rhythm, edema, syncope or leg pain with exertion Resp: Reports: dyspnea; Denies: productive cough, non-productive cough or wheezing GI: Denies: abdominal pain, nausea, vomiting, hematemesis, coffee ground emesis, dysphagia, heartburn, diarrhea, constipation, GI cramping, hematochezia or melena : Denies: flank pain, dysuria, urinary frequency, urinary urgency, urinary incontinence or hematuria PFSH ED PFSH: Medical History Alzheimer's dementia Chronic diastolic (congestive) heart failure Coronary artery disease History of COPD Hyperlipidemia Hypertension Hypothyroidism Normocytic anemia Obesity Obstructive sleep apnea Rheumatoid arthritis Surgical History History of back surgery History of hemorrhoidectomy History of hysterectomy Hx of cholecystectomy Family History Mother Diabetes Father Diabetes CAD (coronary artery disease) Social History Smoking and tobacco status: never smoked Alcohol intake: never Substance/Drug Use: never Lives independently: No Housing: Custodial Marital status: Physical Exam Const: COMMON NORMALS: no acute distress GENERAL APPEARANCE: cooperative and comfortable ORIENTATION/CONSCIOUSNESS: Yes awake, Yes oriented to person, Yes oriented to place and Yes oriented to time HENMT: COMMON NORMALS: normocephalic, atraumatic, hearing grossly normal bilaterally, external ears normal, EAC's normal, TM's normal bilaterally, Normal nasal mucous membranes and turbinates present, moist oral mucous membranes and oropharynx normal HEAD & SCALP: normocephalic and atraumatic NOSE: Normal nasal mucous membranes and turbinates present EXTERNAL EAR: Yes external ears normal EXTERNAL AUDITORY CANAL: EAC's normal TYMPANIC MEMBRANE: TM's normal bilaterally Eye: COMMON NORMALS: Equal, round and reactive pupils present, EOMs intact bilaterally, conjunctivae normal and no scleral icterus CONJUNCTIVA: Yes conjunctivae normal PUPIL: Yes Equal, round and reactive pupils present Neck/C-Spine: COMMON NORMALS: full ROM, no lymphadenopathy, supple and no JVD Lymph: LYMPHATIC: no lymphadenopathy noted and no lymphedema noted Resp: COMMON NORMALS: No retractions and No use of accessory muscles EFFORT & INSPECTION: Yes decreased respiratory effort AUSCULTATION: diminished lung sounds Cardio: COMMON NORMALS: no JVD, regular rate, regular rhythm and No murmurs present (Cardio) RATE: regular rate RHYTHM: regular rhythm GI: COMMON NORMALS: Soft to palpation and No hepatosplenomegaly present AUSCULTATION: Yes normoactive bowel sounds PALPATION: Yes Soft to palpation, No Tenderness to palpation present (GI), No Guarding due to palpation present (GI) and Yes No hepatosplenomegaly present Extremity: COMMON NORMALS: normal to inspection, capillary refill normal, no clubbing, cyanosis or edema, no calf tenderness and no pedal edema Neuro: SENSORIUM/ORIENTATION: Yes oriented to person, Yes oriented to place and Yes oriented to time Skin: COMMON NORMALS: no rashes or lesions noted GENERAL SKIN EXAM: no rashes or lesions noted Course Vital Signs: Vital signs: Vital Signs Temperature 97.9 F 09/28/19 11:02 Pulse Rate 88 09/28/19 11:02 Respiratory Rate 18 09/28/19 11:02 Blood Pressure 116/69 09/28/19 11:02 Pulse Oximetry 98 09/28/19 11:02 MDM - SOB/Dyspnea MDM Narrative: Medical decision making narrative: Discussed the findings with hospitalist. Patient is really difficult to have a conversation when she cannot give much for history. We will go ahead and admit her for acute on chronic respiratory failure she Lab Data: Labs: Lab Results 09/26/19 09/26/19 09/26/19 Range/Units 09:40 09:45 09:45 WBC 10.7 H (4.0-10.0) 10^3/ uL RBC 4.21 (4.1-5.3) 10^6/u L Hgb 12.9 (11.5-15.3) g/dL Hct 45.0 (37.0-47.0) % MCV 106.9 H (81-99) fL MCH 30.6 (28.0-34.0) pg MCHC 28.7 L (30.0-36.0) g/dL RDW 12.8 (12.1-15.1) % Plt Count 251 (130-400) 10^3/c mm MPV 10.9 H (7.4-10.4) fL Neut % (Auto) 81.5 % Lymph % (Auto) 8.6 % Salem % (Auto) 8.0 % Eos % (Auto) 1.1 % Baso % (Auto) 0.3 % Neut # (Auto) 8.7 H (1.8-7.7) 10^3/u L Lymph # (Auto) 0.9 (0.8-4.8) 10^3/u L Salem # (Auto) 0.9 (0.2-0.9) 10^3/u L Eos # (Auto) 0.1 (0.0-0.8) 10^3/u L Baso # (Auto) 0.0 (0.0-0.1) 10^3/u L Nucleated RBC % (a uto) 0 % Nucleated RBCs # 0.0 /100WBC Specimen Type Arterial Sample Site Radial, left ABG pH 7.30 L (7.35-7.45) ABG pCO2 87.4 H* (35-45) mmHg ABG pO2 66.6 L (80.0-100.0) mmH g ABG HCO3 42.6 H (22-26) mmol/L ABG O2 Saturation 91.6 ABG Base Excess 12.3 H (-2.0-2.0) mmol/ L Casey Test Pos A-a O2 Gradient 41.2 H (5-10) mmHg Hematocrit 40.7 (37-47) % Hgb O2 Saturation 90.5 L (95-100) % Carboxyhemoglobin 0.0 L (0.4-20.1) %THgb Methemoglobin 1.1 (0.4-1.5) % Total Hemoglobin 13.3 (12-16) g/dL Sodium 140.0 141 (131-143) mmol/L Potassium 4.9 4.8 (3.5-5.0) mmol/L Glucose 165.0 H 174 H (70-115) mg/dL Ionized Calcium 1.2 (1.1-1.4) mmol/L O2 Delivery Device Bipap FiO2 30.0 % It Sales Representative ID [id number] Chloride 92 L (98-107) mmol/L Carbon Dioxide 41 H (22-29) mmol/L Anion Gap 12.8 (5-19) BUN 5 L (8-23) mg/dL Creatinine 0.6 (0.5-0.9) mg/dL Estimat Average Gl ucose Hemoglobin A1c (4.0-6.0) % Calculated Osmolal ity 292 (285-295) mOsm/k g Lactate (0.5-2.2) mmol/L Calcium 10.4 (8.5-10.5) mg/dL Total Bilirubin 0.3 (0.15-1.2) mg/dL AST 14 (0-32) U/L ALT 11 (0-33) U/L Alkaline Phosphata se 87 (35-105) IU/L Total Protein 7.5 (6.6-8.7) g/dL Albumin 3.9 (3.5-5.2) g/dL Globulin 3.6 (1.3-4.6) g/dL TSH (0.27-4.20) uIU/ mL Urine Color (Yellow) Urine Appearance (CLEAR) Urine pH (5-7) Ur Specific Gravit y (1.005-1.030) Urine Protein (Negative) Urine Glucose (UA) (Normal) Urine Ketones (Negative) Urine Blood (Negative) Urine Nitrate (Negative) Urine Bilirubin (NEGATIVE) Urine Urobilinogen (Negative) mg/dL Ur Leukocyte Estephanie ase (Negative) 09/26/19 09/26/19 09/26/19 Range/Units 09:45 09:45 09:45 WBC (4.0-10.0) 10^3/ uL RBC (4.1-5.3) 10^6/u L Hgb (11.5-15.3) g/dL Hct (37.0-47.0) % MCV (81-99) fL MCH (28.0-34.0) pg MCHC (30.0-36.0) g/dL RDW (12.1-15.1) % Plt Count (130-400) 10^3/c mm MPV (7.4-10.4) fL Neut % (Auto) % Lymph % (Auto) % Salem % (Auto) % Eos % (Auto) % Baso % (Auto) % Neut # (Auto) (1.8-7.7) 10^3/u L Lymph # (Auto) (0.8-4.8) 10^3/u L Salem # (Auto) (0.2-0.9) 10^3/u L Eos # (Auto) (0.0-0.8) 10^3/u L Baso # (Auto) (0.0-0.1) 10^3/u L Nucleated RBC % (a uto) % Nucleated RBCs # /100WBC Specimen Type Sample Site ABG pH (7.35-7.45) ABG pCO2 (35-45) mmHg ABG pO2 (80.0-100.0) mmH g ABG HCO3 (22-26) mmol/L ABG O2 Saturation ABG Base Excess (-2.0-2.0) mmol/ L Casey Test A-a O2 Gradient (5-10) mmHg Hematocrit (37-47) % Hgb O2 Saturation (95-100) % Carboxyhemoglobin (0.4-20.1) %THgb Methemoglobin (0.4-1.5) % Total Hemoglobin (12-16) g/dL Sodium (131-143) mmol/L Potassium (3.5-5.0) mmol/L Glucose (70-115) mg/dL Ionized Calcium (1.1-1.4) mmol/L O2 Delivery Device FiO2 % It Sales Representative ID Chloride (98-107) mmol/L Carbon Dioxide (22-29) mmol/L Anion Gap (5-19) BUN (8-23) mg/dL Creatinine (0.5-0.9) mg/dL Estimat Average Gl ucose 180 Hemoglobin A1c 7.9 H (4.0-6.0) % Calculated Osmolal ity (285-295) mOsm/k g Lactate 1.6 (0.5-2.2) mmol/L Calcium (8.5-10.5) mg/dL Total Bilirubin (0.15-1.2) mg/dL AST (0-32) U/L ALT (0-33) U/L Alkaline Phosphata se (35-105) IU/L Total Protein (6.6-8.7) g/dL Albumin (3.5-5.2) g/dL Globulin (1.3-4.6) g/dL TSH 1.93 (0.27-4.20) uIU/ mL Urine Color (Yellow) Urine Appearance (CLEAR) Urine pH (5-7) Ur Specific Gravit y (1.005-1.030) Urine Protein (Negative) Urine Glucose (UA) (Normal) Urine Ketones (Negative) Urine Blood (Negative) Urine Nitrate (Negative) Urine Bilirubin (NEGATIVE) Urine Urobilinogen (Negative) mg/dL Ur Leukocyte Estephanie ase (Negative) 09/26/19 09/26/19 Range/Units 10:31 10:39 WBC (4.0-10.0) 10^3/ uL RBC (4.1-5.3) 10^6/u L Hgb (11.5-15.3) g/dL Hct (37.0-47.0) % MCV (81-99) fL MCH (28.0-34.0) pg MCHC (30.0-36.0) g/dL RDW (12.1-15.1) % Plt Count (130-400) 10^3/c mm MPV (7.4-10.4) fL Neut % (Auto) % Lymph % (Auto) % Salem % (Auto) % Eos % (Auto) % Baso % (Auto) % Neut # (Auto) (1.8-7.7) 10^3/u L Lymph # (Auto) (0.8-4.8) 10^3/u L Salem # (Auto) (0.2-0.9) 10^3/u L Eos # (Auto) (0.0-0.8) 10^3/u L Baso # (Auto) (0.0-0.1) 10^3/u L Nucleated RBC % (a uto) % Nucleated RBCs # /100WBC Specimen Type Arterial Sample Site Brachial, left ABG pH 7.28 L (7.35-7.45) ABG pCO2 91.8 H* (35-45) mmHg ABG pO2 86.2 (80.0-100.0) mmH g ABG HCO3 42.9 H (22-26) mmol/L ABG O2 Saturation 94.8 ABG Base Excess 12.1 H (-2.0-2.0) mmol/ L Casey Test Pos A-a O2 Gradient 86.6 H (5-10) mmHg Hematocrit 40.6 (37-47) % Hgb O2 Saturation 93.7 L (95-100) % Carboxyhemoglobin (0.4-20.1) %THgb Methemoglobin 1.3 (0.4-1.5) % Total Hemoglobin 13.2 (12-16) g/dL Sodium 140.0 (131-143) mmol/L Potassium 4.6 (3.5-5.0) mmol/L Glucose 164.0 H (70-115) mg/dL Ionized Calcium 1.3 (1.1-1.4) mmol/L O2 Delivery Device Bipap FiO2 40.0 % It Sales Representative ID [id number] Chloride (98-107) mmol/L Carbon Dioxide (22-29) mmol/L Anion Gap (5-19) BUN (8-23) mg/dL Creatinine (0.5-0.9) mg/dL Estimat Average Gl ucose Hemoglobin A1c (4.0-6.0) % Calculated Osmolal ity (285-295) mOsm/k g Lactate (0.5-2.2) mmol/L Calcium (8.5-10.5) mg/dL Total Bilirubin (0.15-1.2) mg/dL AST (0-32) U/L ALT (0-33) U/L Alkaline Phosphata se (35-105) IU/L Total Protein (6.6-8.7) g/dL Albumin (3.5-5.2) g/dL Globulin (1.3-4.6) g/dL TSH (0.27-4.20) uIU/ mL Urine Color Yellow (Yellow) Urine Appearance Clear (CLEAR) Urine pH 5.0 (5-7) Ur Specific Gravit y 1.015 (1.005-1.030) Urine Protein Neg (Negative) Urine Glucose (UA) Norm (Normal) Urine Ketones Negative (Negative) Urine Blood Neg (Negative) Urine Nitrate Negative (Negative) Urine Bilirubin 1+ H (NEGATIVE) Urine Urobilinogen 1 H (Negative) mg/dL Ur Leukocyte Estephanie ase Negative (Negative) Discharge Plan Discharge Patient Disposition: Admitted As Inpatient Admit Provider: Job Brady Clinical Impression: Acute and chronic respiratory failure with hypercapnia, Alzheimer's dementia, Coronary artery disease, Chronic diastolic (congestive) heart failure, Hypothyroidism, Normocytic anemia Condition: Stable Referrals: Smith Mallory MD [Primary Care Provider] - Interventions: ED Discharge Assessment Last Done: 09/26/19 12:36 ED Charges Last Done: 09/26/19 12:36 Discharge Date/Time: 09/26/19 13:08 Coding Level of Care Code ED Machine Tracer for Chg Fwd Exam Comprehensive
[2019-09-26 10:02] LABS: ABG PCO2 87.4 mmHg (35-45); Alveolar-Arterial Oxygen Gradi 41.2 mmHg (5-10); Arterial Blood Gas Hematocrit 40.7 % (37-47); Base Excess ABG 12.3 mmol/L (-2.0-2.0); Blood Gas Allen Test Pos; Blood Gas Sample Site Radial, left; Blood Gas Sample Type Arterial; HCO3 ABG 42.6 mmol/L (22-26); HGB O2 Sat 90.5 % (95-100); Ionized Calcium Level - ABG 1.2 mmol/L (1.1-1.4); Methemoglobin 1.1 % (0.4-1.5); Oxygen Device BIPAP; Oxygen Saturation ABG 91.6; PO2 ABG 66.6 mmHg (80.0-100.0); Potassium Level - ABG 4.9 mmol/L (3.5-5.0); Total Hemoglobin 13.3 g/dL (12-16)
[2019-09-26 10:04] LABS: Basophils % 0.3 %; Eosinophils # 0.1 10^3/uL (0.0-0.8); Eosinophils % 1.1 %; Hemoglobin 12.9 g/dL (11.5-15.3); Lymphocytes # 0.9 10^3/uL (0.8-4.8); Lymphocytes % 8.6 %; Mean Corpuscular HGB Conc 28.7 g/dL (30.0-36.0); Mean Corpuscular Hemoglobin 30.6 pg (28.0-34.0); Mean Corpuscular Volume 106.9 fL (81-99); Mean Platelet Volume 10.9 fL (7.4-10.4); Monocytes # 0.9 10^3/uL (0.2-0.9); Neutrophils # 8.7 10^3/uL (1.8-7.7); Neutrophils % 81.5 %; Nucleated Red Blood Cells % 0 %; Platelet Count 251 10^3/cmm (130-400); Red Blood Count 4.21 10^6/uL (4.1-5.3); Red Cell Distribution Width 12.8 % (12.1-15.1); White Blood Count 10.7 10^3/uL (4.0-10.0)
[2019-09-26 10:23] LABS: Alanine Aminotransferase 11 U/L (0-33); Albumin Level 3.9 g/dL (3.5-5.2); Alkaline Phosphatase 87 IU/L (35-105); Anion Gap 12.8 (5-19); Aspartate Amino Transferase 14 U/L (0-32); Blood Urea Nitrogen 5 mg/dL (8-23); Calcium 10.4 mg/dL (8.5-10.5); Chloride 92 mmol/L (98-107); Globulin 3.6 g/dL (1.3-4.6); Glucose 174 mg/dL (65-115); Osmolality Calculated 292 mOsm/kg (285-295); Potassium 4.8 mmol/L (3.5-5.1); Sodium 141 mmol/L (136-145); Total Bilirubin 0.3 mg/dL (0.15-1.2); Total Protein 7.5 g/dL (6.6-8.7)
[2019-09-26 10:25] LABS: Carbon Dioxide 41 mmol/L (22-29)
[2019-09-26 10:37] LABS: Lactate (Lactic Acid level) 1.6 mmol/L (0.5-2.2)
[2019-09-26 10:52] LABS: ABG PCO2 91.8 mmHg (35-45); ABG PH Result 7.28 (7.35-7.45); Alveolar-Arterial Oxygen Gradi 86.6 mmHg (5-10); Arterial Blood Gas Hematocrit 40.6 % (37-47); Base Excess ABG 12.1 mmol/L (-2.0-2.0); Blood Gas Allen Test Pos; Blood Gas Sample Site Brachial, left; Blood Gas Sample Type Arterial; HCO3 ABG 42.9 mmol/L (22-26); HGB O2 Sat 93.7 % (95-100); Ionized Calcium Level - ABG 1.3 mmol/L (1.1-1.4); Methemoglobin 1.3 % (0.4-1.5); Oxygen Device BIPAP; Oxygen Saturation ABG 94.8; PO2 ABG 86.2 mmHg (80.0-100.0); Potassium Level - ABG 4.6 mmol/L (3.5-5.0); Total Hemoglobin 13.2 g/dL (12-16)
[2019-09-26 10:55] LABS: Add Urine Microscopic? NO
[2019-09-26 10:57] LABS: Bilirubin Urine 1+ (NEGATIVE); Blood Urine Neg (Negative); Glucose Urine UA Norm (Normal); Ketones Urine Negative (Negative); Leukocyte Esterase Urine Negative (Negative); Nitrate Urine Negative (Negative); Protein Urine Neg (Negative); Specific Gravity, Urine 1.015 (1.005-1.030); Urine Appearance Clear (CLEAR); Urine Color Yellow (Yellow); Urobilinogen Urine 1 mg/dL (Negative)
--- NOTE | 2019-09-26 13:39 | PM.HP ---
Providers/Chief Complaint Admitting Physician: Job Brady Primary Care Provider: Smith Mallory MD Chief Complaint: ams History of Present Illness Andie Cifuentes is a 78 year old female with COPD, on chronic 3L NC, on chronic BiPAP with sleep, although sometimes refuses to wear it, on total assistance at care home, does not walk, with prior CVA per patient, although NH does not confirm this, Cullen's palsy, chronic L side facial droop and was noted to have some chronic L arm weakness, Alzheimer's dementia, chronic diastolic congestive heart failure, CAD, RA over the weekend had low O2, down as low as 74% after not wearing her BiPAP, this morning was found lethargic, not following commands. Hypercapneic in ER. She is more awake now for me, but still getting easily confused and with asterixis. On NC and says is comfortable. She is having a little trouble expressing her thoughts and appears to have some aphasia. She thinks that this symptom is old, and especially triggered if she gets nervous. residential says that she was having some trouble speaking after episode of Cullen's palsy, but otherwise say that usually she is fairly fluent on her regular/alert days. She complains of dry throat. She also complains of about almost a week of diarrhea. Per goals of care wishes she is not to be intubated or receive CPR in case of cardiopulmonary arrest, she is, however, agreeable for BiPAP support if this is needed. Review of Systems Const: Reports: daytime sleepiness and other (Confused, lethargic); Denies: fever(s), chills, body aches or malaise Eyes: Denies: change in vision or eye redness ENMT: Reports: dry mouth and other (Complains of dry throat); Denies: throat pain, oral sores or ear or mastoid pain Card: Reports: dyspnea on exertion; Denies: chest pain, edema or pre-syncope Resp: Denies: dyspnea, productive cough, change in phlegm color or hemoptysis GI: Reports: diarrhea; Denies: abdominal pain, nausea, vomiting, constipation, hematochezia or melena : Denies: flank pain, urinary frequency or hematuria Musc: Reports: other (Does not walk. Sierra lift dependent. ); Denies: back pain, joint swelling or joint redness Skin/Breast: Denies: rash, sores or new lesions Neuro: Denies: headache(s), numbness in extremities, weakness in extremities, dizziness, confusion or seizure-like activity Endo: Denies: polyuria or polydipsia Jason/Lymph: Denies: easy bleeding or purpura All/Imm: Denies: urticaria, throat swelling or tongue swelling Medications/Allergies Home Medications Medication Instructions Recorded Confirmed Last Taken Type A&D Topical Ointment See Rx Instructions .ROUTE .COMPLEX 07/12/19 09/26/19 Unknown History Robitussin Cough-Chest Andrew DM 10 ml PO Q8H PRN 07/12/19 09/26/19 Unknown History acetaminophen [Tylenol] 650 mg PO Q4H PRN 07/12/19 09/26/19 Unknown History acetaminophen [Tylenol] 650 mg PO Q8H 07/12/19 09/26/19 09/26/19 08:00 History albuterol sulfate See Rx Instructions .ROUTE .COMPLEX 07/12/19 09/26/19 07/09/19 History artificial tears(hypromellose) See Rx Instructions .ROUTE .COMPLEX 07/12/19 09/26/19 09/26/19 History bisacodyl 10 mg UT DAILY PRN 07/12/19 09/26/19 Unknown History citalopram [Celexa] 20 mg PO DAILY 07/12/19 09/26/19 09/26/19 08:00 History docusate sodium [Colace] See Rx Instructions .ROUTE .COMPLEX 07/12/19 09/26/19 07/11/19 History ferrous sulfate [iron] 325 mg PO BID 07/12/19 09/26/19 09/26/19 08:00 History fluticasone propion-salmeterol 1 inh INHALATION BID 07/12/19 09/26/19 09/26/19 08:00 History [Advair Diskus] fluticasone propionate [Flonase 1 spray INTRANASAL DAILY 07/12/19 09/26/19 09/26/19 08:00 History Allergy Relief] folic acid 1 mg PO DAILY 07/12/19 09/26/19 09/26/19 08:00 History gabapentin 300 mg PO TID 07/12/19 09/26/19 09/26/19 08:00 History glycerin (adult) 1 supp UT DAILY PRN 07/12/19 09/26/19 Unknown History guaifenesin 200 mg PO QID PRN 07/12/19 09/26/19 Unknown History levothyroxine 37.5 mcg PO DAILY 07/12/19 09/26/19 09/26/19 08:00 History loratadine 10 mg PO DAILY 07/12/19 09/26/19 09/26/19 08:00 History magnesium hydroxide [Milk of 30 ml PO PRN 07/12/19 09/26/19 Unknown History Magnesia] metoprolol tartrate 25 mg PO BID 07/12/19 09/26/19 09/26/19 08:00 History montelukast [Singulair] 10 mg PO DAILY 07/12/19 09/26/19 09/26/19 08:00 History nitroglycerin [Nitrostat] 0.4 mg SUBLINGUAL Q5M PRN 07/12/19 09/26/19 Unknown History ondansetron HCl [Zofran] 4 mg PO TID PRN 07/12/19 09/26/19 Unknown History pantoprazole [Protonix] 40 mg PO BID 07/12/19 09/26/19 09/26/19 History rosuvastatin [Crestor] 10 mg PO DAILY 07/12/19 09/26/19 09/26/19 08:00 History simethicone [Gas Relief See Rx Instructions .ROUTE .COMPLEX 07/12/19 09/26/19 Unknown History (simethicone)] sulfasalazine 500 mg PO BID 07/12/19 09/26/19 09/26/19 08:00 History tamsulosin [Flomax] 0.4 mg PO DAILY 07/12/19 09/26/19 09/26/19 08:00 History tramadol [Ultram] 50 mg PO BEDTIME 07/12/19 09/26/19 09/25/19 History trazodone 75 mg PO BEDTIME 07/12/19 09/26/19 09/25/19 History Allergies Allergy/AdvReac Type Severity Reaction Status Date / Time aspirin Allergy Unknown Unknown Verified 07/12/19 11:58 celecoxib [From Celebrex] Allergy Unknown Unknown Verified 07/12/19 11:58 latex Allergy Unknown Unknown Verified 07/12/19 11:58 PFSH Acute PFSH: Medical History Alzheimer's dementia Chronic diastolic (congestive) heart failure Coronary artery disease History of COPD Hyperlipidemia Hypertension Hypothyroidism Normocytic anemia Obesity Obstructive sleep apnea Rheumatoid arthritis Surgical History History of back surgery History of hemorrhoidectomy History of hysterectomy Hx of cholecystectomy Family History Mother Diabetes Father Diabetes CAD (coronary artery disease) Social History Smoking and tobacco status: never smoked Alcohol intake: never Substance/Drug Use: never Lives independently: No Housing: Retirement Marital status: Vitals/I&O/Wt Last Vital Signs Temp 99.3 F 09/26/19 09:32 Pulse 89 09/26/19 12:41 Resp 20 H 09/26/19 12:36 BP 115/78 09/26/19 12:36 Pulse Ox 94 09/26/19 12:41 Weight last 48 hrs Weight 113.398 kg Physical Exam Const: COMMON NORMALS: no acute distress NUTRITIONAL APPEARANCE: obese morbidly obese ORIENTATION/CONSCIOUSNESS: Yes awake, Yes confused (Mildly confused, takes her a while to think of answers, although overall does mostly answer appropriately) and Yes Other orientation findings (Is having some asterixis) HENMT: COMMON NORMALS: oropharynx normal Neck/C-Spine: COMMON NORMALS: no JVD Resp: COMMON NORMALS: normal respiratory effort AUSCULTATION: diminished lung sounds Cardio: COMMON NORMALS: no JVD, regular rhythm, S1 normal heart sound present, S2 normal heart sound present and No murmurs present (Cardio) RHYTHM: regular rhythm HEART SOUNDS: S1 normal heart sound present and S2 normal heart sound present GI: COMMON NORMALS: Normal to inspection, nondistended, normoactive bowel sounds present, Soft to palpation and non-tender PALPATION: Yes Soft to palpation Extremity: COMMON NORMALS: no joint enlargement and no pedal edema Neuro: OTHER: Sensation is symmetrical. She appears somewhat weaker on the L side for last 6wks per daughter. There appears to be at least mild-mod aphasia, minimal dysarthria. Aphasia appears worsens w anxiety and sounds like is chronic as well per daughter (and pt). Chronic L side facial droop. Visual weaver full but difficult to examine. Appears to be likely intact, although perhaps may be some distal left field deficit. She does not complain of visual changes. She tracks well. Follows commands, although with some mild confusion was having some difficulty with FNF grabbing onto my finger with her hand, then using the opposite hand to touch her own nose. Skin: COMMON NORMALS: no rashes or lesions noted GENERAL SKIN EXAM: no rashes or lesions noted Urinary Catheter Management^: [place]: Cath Placed During This Visit: yes Reason for Continuing Indwelling Catheter: Accurate Measurement of Urinary Output in Critically Ill Patients Urinary Catheter Date of Insertion: 09/26/19 Urinary Catheter Time of Insertion: 10:39 Data : 09/26/19 09:45 09/26/19 09:45 Micro: Microbiology 09/26/19 09:50 Blood Culture - Preliminary Blood SPECIMEN COLLECTED 09/26/19 09:45 Blood Culture - Preliminary Blood SPECIMEN COLLECTED A&P Assessment and plan (1) Acute and chronic respiratory failure with hypercapnia: Very elevated carbon oxide on presentation, she is having asterixis, confusion, this morning lethargic. Discussed with her daughter as well as with care home staff. She is not consistently compliant with her BiPAP, and intermittently refuses to wear it. At care home after not wearing it in order to be having some hypoxia as well. Here her hypoxia appears to be on par with chronic lung disease. She reports occasional cough, with clear sputum. Does sound tight on exam. Appears to have a degree of COPD exacerbation as well. At this time we will add IV steroid, breathing treatments. For now hold off antibiotic. She has been afebrile, there is no sign of pneumonia on x-ray. UA not suggestive of UTI. Will check TSH. Does take Ultram at bedtime, but otherwise does not appear to have any narcotics. Does take gabapentin. For now we will discontinue morphine. She is DNR/DNI, but is agreeable for BiPAP support. We will monitor on medical floor with BiPAP support, oximetry monitoring, cardiac monitoring. Target saturation 88-92%. She complains of dry throat, add humidifier to oxygen. Status: Acute (2) Aphasia: Some difficulty expressing herself, takes a while to come up with what she wants to say. At the same time she is having some confusion, asterixis, and all this may be part of her hypercapnic encephalopathy that she is having. At the same time with some aphasia, left-sided facial droop, and reported chronic left side arm weakness, on and off episodes of a aphasia described by her daughter, discussed with her that concerned that she may have had a stroke at some point, perhaps her symptoms being more unmasked when she is hypercapnic. Daughter is not sure why she has aspirin listed as allergy. Daughter is not aware of any life-threatening bleeding in the past. At this time will obtain CT of the head without contrast. Discussed with daughter we may start Plavix for concern of possible prior CVA, continue statin. Once she is feeling better, nonurgently may be assessed with MRI of the brain to see if in fact had a CVA in the past. For now she is monitored on telemetry as above due to her respiratory failure. We will keep an eye out for any A. fib. We will check A1c. Status: Acute (3) Diarrhea: She reports for the past close to a week has been having diarrhea. Has had antibiotics not long ago. Will check for C. difficile in case diarrhea recurs in the hospital. Status: Acute Additional A&P Information Acute encephalopathy: With hypercapnic respiratory failure. CO2 narcosis. Acute metabolic encephalopathy. Management as above. Pulse oximetry and telemetry monitoring. CAD HTN HLD Alzheimer's dementia Hypothyroidism RA MAYE: Poor adherence with BiPAP Chronic anemia Attestations Medical Necessity Statement*: Admission of over 2 midnights is going to be needed for assessment management of acute on chronic respiratory failure with hypercapnia, COPD exacerbation, acute encephalopathy. Coding Level of Care Code Acute Research Physiologist for Jordi Robledo Diagnoses Acute and chronic respiratory failure with hypercapnia J96.22 Aphasia R47.01 Diarrhea R19.7
--- NOTE | 2019-09-26 13:51 | CTR_ITS ---
PROCEDURE INFORMATION: Exam: CT Head Without Contrast Exam date and time: 09/26/2019 1:55 PM Age: 78 years old Clinical indication: Aphasia TECHNIQUE: Imaging protocol: Computed tomography of the head without contrast. Radiation optimization: All CT scans at this facility use at least one of these dose optimization techniques: automated exposure control; mA and/or kV adjustment per patient size (includes targeted exams where dose is matched to clinical indication); or iterative reconstruction. COMPARISON: CT HEAD 07/12/2019 12:43 PM RADIATION DOSE METRICS: Total DLP: 1442.36 mGy-cm FINDINGS: Limitations: Streak artifact. Brain: No definite acute brain parenchymal abnormality. No intracranial hemorrhage. No extraaxial fluid collections. There is mild diffuse cerebral atrophy. There are mild white matter low attenuation changes in both cerebral hemispheres likely related to chronic small vessel disease. Ventricles: No hydrocephalus. Bones/joints: No calvarial fracture. There is hyperostosis frontalis interna. Sinuses: There is fluid in the left half the sphenoid sinus. Mastoid air cells: There are bilateral mastoid air cell effusions. Auditory system: There is fluid in the right middle ear. Soft tissues: No acute soft tissue abnormality. CT/CT head wo con* [id number] IMPRESSION: 1. No intracranial hemorrhage. 2. Technically limited exam, but no definite acute brain parenchymal abnormality. MRI would be more sensitive in detecting early ischemic changes. 3. Acute sphenoid sinusitis. 4. Bilateral mastoid, and right middle ear, effusions. Radiation Dose CTDIVOL = (mGy): DLP = 1442.36 (mGy-cm)
[2019-09-26 15:06] LABS: Estmated Average Glucose 180; Hemoglobin A1C 7.9 % (4.0-6.0)
[2019-09-26 15:11] LABS: Thyroid Stimulating Hormone 1.93 uIU/mL (0.27-4.20)
[2019-09-26] MEDS: ipratropium-albuterol 3 mL Neb INHALATION ×2 (15:23→19:50)
[2019-09-26] MEDS: heparin 5,000 unit/mL INJ 1 mL 5000 UNIT SUBCUT ×2 (16:28→22:05)
[2019-09-26] MEDS: sulfaSALAzine 500 mg Tablet PO (17:05)
[2019-09-26] MEDS: pantoprazole DR 40 mg Tablet PO (17:06)
[2019-09-26] MEDS: metoprolol tartrate 25 mg Tablet PO (17:08)
[2019-09-26] MEDS: acetaminophen 325 mg Tablet 650 MG PO (21:11)
[2019-09-26] MEDS: clopidogrel 75 mg Tablet PO (21:12)
[2019-09-27] VITALS (19 sets, daily range): BP systolic 99–124; BP diastolic 62–73; PULSE 74–94; RESP 16–24; TEMP 36.7–37.1; O2SAT 91–96
[2019-09-27] MEDS: ipratropium-albuterol 3 mL Neb INHALATION ×7 (01:32→23:41)
[2019-09-27 05:39] LABS: Basophils % 0.2 %; Hematocrit 42.4 % (37.0-47.0); Hemoglobin 12.7 g/dL (11.5-15.3); Lymphocytes # 0.5 10^3/uL (0.8-4.8); Lymphocytes % 5.1 %; Mean Corpuscular Hemoglobin 30.3 pg (28.0-34.0); Mean Corpuscular Volume 101.2 fL (81-99); Mean Platelet Volume 11.5 fL (7.4-10.4); Monocytes # 0.1 10^3/uL (0.2-0.9); Neutrophils # 9.4 10^3/uL (1.8-7.7); Neutrophils % 93.3 %; Nucleated Red Blood Cells % 0 %; Platelet Count 235 10^3/cmm (130-400); Red Blood Count 4.19 10^6/uL (4.1-5.3); Red Cell Distribution Width 12.6 % (12.1-15.1); White Blood Count 10.1 10^3/uL (4.0-10.0)
[2019-09-27 05:53] LABS: Anion Gap 14.3 (5-19); Blood Urea Nitrogen 6 mg/dL (8-23); Calcium 10.4 mg/dL (8.5-10.5); Carbon Dioxide 37 mmol/L (22-29); Chloride 90 mmol/L (98-107); Glucose 213 mg/dL (65-115); Osmolality Calculated 286 mOsm/kg (285-295); Potassium 4.3 mmol/L (3.5-5.1); Sodium 137 mmol/L (136-145)
[2019-09-27] MEDS: ATORVASTATIN 40 MG PO (08:50)
[2019-09-27] MEDS: gabapentin 300 mg Capsule PO (08:50)
[2019-09-27] MEDS: tamsulosin 0.4 mg Capsule PO (08:50)
[2019-09-27] MEDS: levothyroxine 25 mcg Tablet 37.5 MCG PO (08:50)
[2019-09-27] MEDS: metoprolol tartrate 25 mg Tablet PO ×2 (08:51→17:48)
[2019-09-27] MEDS: clopidogrel 75 mg Tablet PO (08:51)
[2019-09-27] MEDS: folic acid 1 mg Tablet PO (08:51)
[2019-09-27] MEDS: montelukast sodium 10 mg Tablet PO (08:51)
[2019-09-27] MEDS: pantoprazole DR 40 mg Tablet PO ×2 (08:51→17:48)
[2019-09-27] MEDS: sulfaSALAzine 500 mg Tablet PO ×2 (08:51→17:50)
[2019-09-27] MEDS: citalopram 20 mg Tablet PO (08:51)
[2019-09-27] MEDS: fluticasone nasal spray 16gm Btl 1 SPRAY INTRANASAL (08:52)
[2019-09-27] MEDS: heparin 5,000 unit/mL INJ 1 mL 5000 UNIT SUBCUT ×2 (08:52→16:10)
--- NOTE | 2019-09-27 09:34 | PC.OT ---
OT NOTE: OT EVALUATION ORDERS RECEIVED. OT SCREEN COMPLETED. PER PATIENT AND SNF; PATIENT IS TOTAL ASSIST FOR ALL ADLS EXCEPT FOR FEEDING HERSELF. SHE REPORTS THAT SHE WAS ABLE TO FEED SELF THIS MORNING. DME: SHOWER CHAIR, MANUAL W/C, [facility] LIFT AND HOSPITAL BED. NO FURTHER SKILLED OT REQUIRED AT THIS TIME.
--- NOTE | 2019-09-27 11:13 | PC.CHAP ---
Pastoral Care Encounter/Spiritual Assessment Type of Contact [] Declined station operator visit [] Patient/Family/Request visit [] Outpatient visit [] Follow-up visit [] Physician referral [] Code/Alert [X] Routine visit [] Staff referral [] Actively dying [] Patient sleeping [] Family support [] [] Out of room [] Palliative care [] [x] Receiving care in room [] Pre-surgical visit [] Trauma [] Long length of stay [] ICU visit [] Other: Relational/Emotional Strength [x] Patient feels connected with others/family/visitors/staff [] Distress [] Loneliness/isolation [] Abandonment Spirituality of Patient [x] Person of Meka [] Attends Islam of their Meka [x] Believes in Prayer [] Reads Bible or Bahai materials [] There are Spiritual issues to be addressed Canary Raiser Interventions [x] Prayer [x] Active listening [x] Non-anxious presence [x] Spiritual/emotional support [] Crisis/trauma care [x] Spiritual counseling [] Bereavement support [] Provided bereavement packet [] Provided Bible/devotional materials [] Provided toy/stuffed animal, coloring book to patient or family member [] Provided Communion [] Anointing/[place] [] Salvation [x] Completed spiritual assessment [] Other: Impact on Illness or Injury [] Angry [] Fearful [x] Anxious [] Often cries [] Exhaustion [] Unable to work [] Unable to attend yazidi [] Unable to walk/stand [] Unable to read [] Unable to drive [] Unable to eat/drink [] Unable to sleep [] Unable to be with family [] Patient intubated [] Other: Summary AMS / good attitude, Doesn't know about the tests, dealing with lungs can't breath, going back [facility] Time spent with patient 10 mins
--- NOTE | 2019-09-27 17:55 | PC.PT ---
PT note; received PT evaluation order on this patient; called snf to find out her prior level of function; patient nurse relates patient requires total assistance at snf including use of [place] lift or showering; patient refuses out of bed at all times, despite having doctor's orders to be out of bed; therefore, per PT screen, patient is inappropriate for skilled physical therapy, or evaluation at this time.
--- NOTE | 2019-09-27 17:59 | PC.PT ---
PT note; will inform physician of above information.
--- NOTE | 2019-09-27 20:10 | P.PN_ITS ---
Subjective Subjective: Interval history: She denies any new symptoms. Her speech has somewhat improved at least objectively, she denies it is any different from her usual. Left arm without new symptoms, does say is persistently weaker, was having some pain thereafter a blood draw. Vitals/I&O/Wt Last Vital Signs Temp 98.6 F 09/27/19 15:28 Pulse 79 09/27/19 20:05 Resp 18 09/27/19 19:55 BP 111/67 09/27/19 15:28 Pulse Ox 91 09/27/19 20:05 09/27/19 09/27/19 09/27/19 06:59 14:59 22:59 Intake Total 600 / 600 400 / 1000 Output Total 450 / 700 300 / 300 Balance -450 / -460 600 / 600 100 / 700 Weight last 48 hrs Weight 120.656 kg Weight 121.744 kg Weight 113.398 kg Physical Exam Const: COMMON NORMALS: no acute distress NUTRITIONAL APPEARANCE: obese morbidly obese ORIENTATION/CONSCIOUSNESS: Yes awake and Yes Other orientation findings (Asterixis resolved.); not confused HENMT: COMMON NORMALS: oropharynx normal Neck/C-Spine: COMMON NORMALS: no JVD Resp: OTHER: Today better air entry bilaterally. Cardio: COMMON NORMALS: no JVD, regular rhythm, S1 normal heart sound present, S2 normal heart sound present and No murmurs present (Cardio) RHYTHM: regular rhythm HEART SOUNDS: S1 normal heart sound present and S2 normal heart sound present GI: COMMON NORMALS: Normal to inspection, nondistended, normoactive bowel sounds present, Soft to palpation and non-tender PALPATION: Yes Soft to palpation Extremity: COMMON NORMALS: no joint enlargement and no pedal edema Neuro: OTHER: A aphasia objectively is better, today she notes her speech is not different from usual. Persistent facial droop, minimal if any dysarthria. Left arm persistently weaker than right side. No other changes today. Skin: COMMON NORMALS: no rashes or lesions noted GENERAL SKIN EXAM: no rashes or lesions noted Urinary Catheter Management^: Callejas: Cath Placed During This Visit: yes Reason for Continuing Indwelling Catheter: Other Urinary Catheter Date of Insertion: 09/26/19 Urinary Catheter Time of Insertion: 10:39 Data : 09/27/19 04:35 09/27/19 04:35 Micro: Microbiology 09/26/19 09:45 Blood Culture - Preliminary Blood Gram positive cocci 09/26/19 09:50 Blood Culture - Preliminary Blood NEGATIVE TO DATE A&P Assessment and plan (1) Acute and chronic respiratory failure with hypercapnia: This appears to be improving. Objectively she has better air entry on exam. Asterixis has resolved. Mental status is better, she is less confused, with near resolution of a aphasia. Other neurologic complaints with persistent facial droop: Persistent left side arm weakness, which appears to be chronic. Discussed with her importance of strict adherence to BiPAP. She clarified that she does not hear at night, but during the states does not always know when she may take a nap. Discussed with her to always err on the side of caution due to high risk of recurrence of hypercapnic respiratory failure, encephalopathy, to which she verbalized understanding and agreement. At this time we will switch her to oral steroids. Continue to monitor her mental status, oxygenation, and reinforce good adherence with BiPAP. If continues to do well potentially may be discharged tomorrow. We will monitor on medical floor with BiPAP support, oximetry monitoring, cardiac monitoring. Target saturation 88-92% She complains of dry throat, humidifier requested for oxygen. Status: Acute (2) Aphasia: Overall she is less confused today, and there appears to be near complete resolution of a aphasia. Minimal if any dysarthria. Has persistent facial droop, persistent left arm weakness compared to the right. The symptoms appear to be chronic. 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 For now continues on telemetry monitoring. Discussed with her will benefit from additional evaluation by MRI brain which may be obtained on outpatient basis. For now continues on Plavix. Continue statin. Will also refer her for carotid Doppler. Discussed with her that she has diabetes, and will need better glucose control as this is a contributing risk factor for CVA. She denies having history of diabetes in the past. He is agreeable to start oral medication on discharge. Given multiple different neurologic qualities, symptoms, she is agreeable to follow-up with neurology in office. Status: Acute (3) Diarrhea: She reports for the past close to a week has been having diarrhea. This appears to be resolved here in the hospital, as we have not been able to obtain a stool sample. She denies any abdominal complaints. Has had antibiotics not long ago. Will check for C. difficile in case diarrhea recurs in the hospital. Status: Acute Additional A&P Information Acute encephalopathy: Significantly improved. Appears probably back to her baseline. Asterixis resolved. A aphasia almost entirely resolved. CAD HTN HLD Alzheimer's dementia Hypothyroidism RA MAYE: Poor adherence with BiPAP Chronic anemia Attestations Medical Necessity Statement*: Continue admission for assessment of acute hypercapnic respiratory failure, acute encephalopathy, as well as other focal neurologic symptoms concerning for past CVA. Coding Level of Care Code Acute Youth Liaison Officer for Jordi Robledo Diagnoses Acute and chronic respiratory failure with hypercapnia J96.22 Aphasia R47.01 Diarrhea R19.7
[2019-09-28] VITALS (10 sets, daily range): BP systolic 115–161; BP diastolic 69–78; PULSE 74–102; RESP 16–29; TEMP 36.4–36.9; O2SAT 93–98
[2019-09-28] MEDS: heparin 5,000 unit/mL INJ 1 mL 5000 UNIT SUBCUT ×2 (00:50→09:40)
[2019-09-28] MEDS: ipratropium-albuterol 3 mL Neb INHALATION ×3 (03:06→14:17)
[2019-09-28] MEDS: tamsulosin 0.4 mg Capsule PO (09:40)
[2019-09-28] MEDS: folic acid 1 mg Tablet PO (09:40)
[2019-09-28] MEDS: pantoprazole DR 40 mg Tablet PO (09:40)
[2019-09-28] MEDS: citalopram 20 mg Tablet PO (09:40)
[2019-09-28] MEDS: gabapentin 300 mg Capsule PO (09:40)
[2019-09-28] MEDS: metoprolol tartrate 25 mg Tablet PO (09:40)
[2019-09-28] MEDS: montelukast sodium 10 mg Tablet PO (09:40)
[2019-09-28] MEDS: ATORVASTATIN 40 MG PO (09:40)
[2019-09-28] MEDS: clopidogrel 75 mg Tablet PO (09:40)
[2019-09-28] MEDS: fluticasone nasal spray 16gm Btl 1 SPRAY INTRANASAL (09:41)
[2019-09-28] MEDS: levothyroxine 25 mcg Tablet 37.5 MCG PO (09:41)
[2019-09-28] MEDS: sulfaSALAzine 500 mg Tablet PO (09:45)
--- NOTE | 2019-09-28 14:33 | P.DS_ITS ---
Discharge Providers Date of Admission: 09/26/19 12:03 Date of Discharge: September 28, 2019 Attending Provider at Admission: Job Brady Attending Provider at Discharge: Job Brady Primary Care Provider: Smith Mallory MD Diagnoses at Discharge Discharge Diagnosis (1) Acute and chronic respiratory failure with hypercapnia: Status: Acute (2) Aphasia: Status: Acute (3) Diarrhea: Status: Acute (4) DM type 2 (diabetes mellitus, type 2): Status: Acute Problem details: New Reason for Visit Reason for Visit: Reason For Visit: ams Hospital Course Hospital Course: Very pleasant 78-year-old lady with history of COPD, obstructive sleep apnea, dependent on BiPAP anytime she is asleep, with recurrent hypercapnic respiratory failure, hypercapnic encephalopathy, chronically on 3 L oxygen by nasal cannula otherwise, has not been ambulatory, with prior history of Cullen's palsy, although also unclear history of left upper extremity weakness, intermittent a aphasia, also chronic diastolic heart failure, CAD, RA, unclear whether may also have OHS, was admitted after found with altered mental status, with lethargic, not [facility], where she is described not always adhering with BiPAP, sometimes declining to wear it while going to sleep. Noted in hypercapnic respiratory failure on presentation, with acute encephalopathy due to CO2 narcosis, COPD exacerbation. With history of hypothyroidism, UA not suggestive of UTI, and no other obvious triggers to contribute to encephalopathy. She showed improvement with BiPAP therapy, started on IV steroids, breathing treatments, and encouraged to wear her BiPAP at all times during acute., And subsequently we have had multiple discussions encouraging her to wear it anytime she is asleep, at night or even if she suspects she may be heading for a nap. She verbalized understa nding. On presentation also with noted quite significant a aphasia, mild dysarthria, which appears to come and go, and she states worse with anxiety, however, this is not been a lifelong finding. With left upper extremity weakness, I am not sure that all these findings can be explained by her Cullen's palsy, and prior CVA at this time is still suspected. Due to this she started on Plavix, statin dose increased to high intensity. No atrial fibrillation noted on cardiac tracing here. She is referred for additional evaluation by MRI brain to exclude prior CVA due to her multiple symptoms, as well as carotid Dopplers. Afterwards she is encouraged to follow-up with neurology. Please revisit with her regarding Plavix depending on results of these additional studies. She is noted to have new diagnosis of diabetes, with elevated A1c of 7.9. She started on metformin. Please continue to optimize care. She is encouraged to maintain consistent carbohydrate diet. Please discuss with her r egarding weight loss options. On presentation also complaining of close to a week of diarrhea, however, this appears to resolved. We could not obtain stool studies. Her mental status has significantly improved. Asterixis has resolved. A aphasia with significant improvement/near resolution. Given multiple chronic pulmonary conditions and recently multiple admissions she is referred to pulmono logy for additional assessment of her chronic respiratory failure, COPD, MAYE, and possibly OHS. Physical Exam Const: COMMON NORMALS: no acute distress NUTRITIONAL APPEARANCE: obese morbidly obese ORIENTATION/CONSCIOUSNESS: Yes awake and Yes Other orientation findings (Asterixis resolved.); not confused HENMT: COMMON NORMALS: oropharynx normal Neck/C-Spine: COMMON NORMALS: no JVD Resp: COMMON NORMALS: normal respiratory effort AUSCULTATION: diminished lung sounds OTHER: better air entry bilaterally. Cardio: COMMON NORMALS: no JVD, regular rhythm, S1 normal heart sound present, S2 normal heart sound present and No murmurs present (Cardio) RHYTHM: regular rhythm HEART SOUNDS: S1 normal heart sound present and S2 normal heart sound present GI: COMMON NORMALS: Normal to inspection, nondistended, normoactive bowel sounds present, Soft to palpation and non-tender PALPATION: Yes Soft to palpation Extremity: COMMON NORMALS: no joint enlargement and no pedal edema Neuro: OTHER: A aphasia objectively is better, today she notes her speech is not different from usual. Persistent facial droop, minimal if any dysarthria. Left arm persistently weaker than right side but better today. No other changes today. Skin: COMMON NORMALS: no rashes or lesions noted GENERAL SKIN EXAM: no rashes or lesions noted Urinary Catheter Management^: Callejas: Cath Placed During This Visit: yes Reason for Continuing Indwelling Catheter: Chronic Indwelling Urinary Catheter on Admission Urinary Catheter Date of Insertion: 09/26/19 Urinary Catheter Time of Insertion: 10:39 Discharge Data Data Completed and Pending: Completed Studies During Hospitalization Category Date Time Status CT head wo con* [id number] Urgent Cat Scan 09/26/19 13:51 Completed XR chest 1V madan ble [id number] Stat Exams 09/26/19 09:51 Completed Pending at discharge Category Date Time Status Arterial Blood Ga s Full Stat Lab 09/26/19 10:39 Results Blood Culture Sta t Lab 09/26/19 09:50 Results Clostridium Diffi cile BY PCR Routin e Lab 09/26/19 15:53 Ordered Vitals: Last Vital Signs Temp 97.9 F 09/28/19 11:02 Pulse 82 09/28/19 14:19 Resp 29 H 09/28/19 14:19 BP 116/69 09/28/19 11:02 Pulse Ox 97 09/28/19 14:19 Discharge Plan Discharge Patient Disposition: Xfer [facility] Condition: Stable Prescriptions: New ipratropium-albuterol 0.5 mg-3 mg(2.5 mg base)/3 mL Solution For Nebulization 3 ml inhalation TID Qty: 90 RF: 0 metformin 500 mg tablet 500 mg PO BID Qty: 60 RF: 0 clopidogrel 75 mg Tablet 75 mg PO DAILY Qty: 30 RF: 0 prednisone 20 mg Tablet 40 mg PO DAILY Qty: 21 RF: 0 Continued A&D Topical Ointment See Rx Instructions .ROUTE .COMPLEX RF: 0 fluticasone propion-salmeterol [Advair Diskus] 250-50 mcg/dose Blister With Device 1 inh INHALATION BID RF: 0 acetaminophen [Tylenol] 325 mg Tablet 650 mg PO Q4H PRN (Reason: Pain) RF: 0 sulfasalazine 500 mg Tablet 500 mg PO BID RF: 0 ondansetron HCl [Zofran] 4 mg Tablet 4 mg PO TID PRN (Reason: Nausea) RF: 0 simethicone [Gas Relief (simethicone)] 125 mg Capsule See Rx Instructions .ROUTE .COMPLEX RF: 0 tramadol [Ultram] 50 mg Tablet 50 mg PO BEDTIME RF: 0 guaifenesin 100 mg/5 mL Liquid 200 mg PO QID PRN (Reason: Cough) RF: 0 levothyroxine 75 mcg Tablet 37.5 mcg PO DAILY RF: 0 citalopram [Celexa] 20 mg Tablet 20 mg PO DAILY RF: 0 magnesium hydroxide [Milk of Magnesia] 400 mg/5 mL Suspension 30 ml PO PRN RF: 0 tamsulosin [Flomax] 0.4 mg Capsule 0.4 mg PO DAILY RF: 0 bisacodyl 10 mg Suppository 10 mg AK DAILY PRN (Reason: Constipation) RF: 0 pantoprazole [Protonix] 40 mg Tablet,Delayed Release (Dr/Ec) 40 mg PO BID RF: 0 ferrous sulfate [iron] 325 mg (65 mg iron) Tablet 325 mg PO BID RF: 0 nitroglycerin [Nitrostat] 0.4 mg Tablet, Sublingual 0.4 mg SUBLINGUAL Q5M PRN (Reason: Chest Pain) RF: 0 docusate sodium [Colace] 100 mg Capsule See Rx Instructions .ROUTE .COMPLEX RF: 0 gabapentin 300 mg Capsule 300 mg PO TID RF: 0 folic acid 1 mg Tablet 1 mg PO DAILY RF: 0 montelukast [Singulair] 10 mg Tablet 10 mg PO DAILY RF: 0 fluticasone propionate [Flonase Allergy Relief] 50 mcg/actuation [place],Suspension 1 spray INTRANASAL DAILY RF: 0 loratadine 10 mg Tablet 10 mg PO DAILY RF: 0 metoprolol tartrate 25 mg Tablet 25 mg PO BID RF: 0 glycerin (adult) Suppository 1 supp AK DAILY PRN (Reason: Constipation) RF: 0 albuterol sulfate 2.5 mg/0.5 mL Solution For Nebulization See Rx Instructions .ROUTE .COMPLEX RF: 0 Robitussin Cough-Chest Andrew DM 5-50 mg/5 mL Liquid 10 ml PO Q8H PRN (Reason: Cough) RF: 0 artificial tears(hypromellose) See Rx Instructions .ROUTE .COMPLEX RF: 0 trazodone 75 mg PO BEDTIME RF: 0 Changed rosuvastatin [Crestor] 10 mg Tablet 20 mg PO DAILY Qty: 0 RF: 0 Discontinued acetaminophen [Tylenol] 325 mg Tablet 650 mg PO Q8H RF: 0 Discharge Orders: Discharge Order (Routine); Ordered 09/28/19 Ordered By: Job Brady Other Ambulatory Orders: CV carotid duplex BI* [id number] (Routine) Timeframe: 1 Week Facility: [facility] - Location: Radiology [facility] Ordered By: Job Brady MR head wo/w con [id number] (Routine) Timeframe: 1 Week Facility: [facility] - Location: Radiology [facility] Ordered By: Job Brady Referrals: Whitney Merritt MD [Physician] - 2 weeks (After MRI, carotid doppler, suspected CVA w aphasia, L arm weakness, Hx Cullen's palsy) Smith Mallory MD [Primary Care Provider] - 4-7 days Abdelrahman Evans MD [Physician] - 2 weeks (CPOD, chronic respiratory failure, MAYE, poss OHS, ) Discharge Diet: Cardiac, Diabetic and Soft Mechanical Discharge Activity: Increase activity as tolerated and As per PT/OT instructions Activity Restrictions/Additional Instructions: Continue PT, OT, ST. Strict aspiration precautions. After MRI and carotid Doppler please follow-up with neurology with regards to intermittent/chronic symptoms of word finding difficulty, left arm weakness with possible prior stroke. Cullen's palsy. After MRI and carotid Dopplers are complete, discuss with your primary care provider, as well as neurologist regarding Plavix. Please maintain BiPAP anytime you are asleep, at night, or during any naps during the day without exceptions. Please follow-up with your primary care provider with regards to diabetes. Discharge Attestations Time Spent in Discharge Care*: greater than 30 min Quality Metrics Clinical Quality Measures During this hospital stay, did patient experience: Stroke Contraindication to Antithrombotic: Antithrombotic prescribed Contraindication to Anticoagulation: Overlap treatment not indicated Contraindication to Statin: Statin prescribed and None Coding Level of Care Code Acute Bushing And Broach Operator for Yolyg Fwd Diagnoses Acute and chronic respiratory failure with hypercapnia J96.22 Aphasia R47.01 Diarrhea R19.7 DM type 2 (diabetes mellitus, type 2) E11.9
--- NOTE | 2019-09-28 15:49 | PC.NURSE ---
Report call to Lizette GONZALES at [facility]. Patient will be discharged with her Callejas catheter.
--- NOTE | 2019-09-28 17:30 | PC.NURSE ---
[facility] arrived to take patient back to [facility]. Patient is going back with her Callejas Catheter. Patient is alert to self and place. IV removed intact. Patient tolerated well.
== END 2019-09-28 17:30 | disposition skilled nursing facility (03) | DRG 189 ==
LOC: ER 12:03 → MEDSURG 12:19
PROVIDERS: Family Medicine; Admitting Provider Internal Medicine; PCP Family Medicine; Visit Provider Internal Medicine
DX: J96.22 Acute and chronic respiratory failure with hypercapnia (principal); G93.41 Metabolic encephalopathy; R47.01 Aphasia; Z68.41 Body mass index [BMI] 40.0-44.9, adult; J44.1 Chronic obstructive pulmonary disease with (acute) exacerbation; I50.32 Chronic diastolic (congestive) heart failure; E66.2 Morbid (severe) obesity with alveolar hypoventilation; Z66 Do not resuscitate; I11.0 Hypertensive heart disease with heart failure; E11.9 Type 2 diabetes mellitus without complications; H70.13 Chronic mastoiditis, bilateral; R19.7 Diarrhea, unspecified; Z99.81 Dependence on supplemental oxygen; G51.0 Bell's palsy; I25.10 Atherosclerotic heart disease of native coronary artery without angina pectoris; M06.9 Rheumatoid arthritis, unspecified; E03.9 Hypothyroidism, unspecified; E78.5 Hyperlipidemia, unspecified; G30.9 Alzheimer's disease, unspecified; F02.80 Dementia in other diseases classified elsewhere, unspecified severity, without behavioral disturbance, psychotic disturbance, mood disturbance, and anxiety; D64.9 Anemia, unspecified
CPT/HCPCS: 12345; 36415; 36600; 51702; 70450; 71045; 80048; 80051; 80053; 81003; 82810; 83036; 83605; 83986; 84443; 85025; 87040; 87077; 87205; 92523; 92610; 93005; 94640; 94660; 94762; 96372; 96375; 99283; J1644; J2930

== ENCOUNTER 2019-11-28 11:00 | Outpatient (CLI) | payer MEDICARE, MEDICAID, SELFPAY | END 2019-11-28 11:01 | disposition home or self-care (01) | LOC: SLEEP 11-29 15:20 | PROVIDERS: PCP Family Medicine; Visit Provider Physician Assistant | DX: J96.10 Chronic respiratory failure, unspecified whether with hypoxia or hypercapnia (principal); R41.82 Altered mental status, unspecified | CPT/HCPCS: 94762 ==

== ENCOUNTER → 2019-12-30 11:40 | Outpatient (BNVA) | payer MEDICARE, MEDICAID, SELFPAY | PROVIDERS: PCP Family Medicine; Visit Provider Internal Medicine | DX: Z01.812 Encounter for preprocedural laboratory examination (principal) | CPT/HCPCS: 87635 ==

== ENCOUNTER 2020-01-03 10:58 | Outpatient (CLI) | payer MEDICARE, MEDICAID, SELFPAY ==
--- NOTE | 2020-01-03 13:15 | PFTS_ITS ---
Date of Study:01/03/20 Date of Dictation: MECHANICS: Forced vital capacity (FVC) is reduced. Forced expiratory volume in one second (FEV1) is reduced. FEV1/FVC is normal. FLOW VOLUME LOOP: Narrow. LUNG VOLUMES: Not performed DIFFUSING CAPACITY FOR CARBON MONOXIDE: Not performed INTERPRETATION: Spirometry is consistent with severe restrictive ventilatory defect. MTDD
== END 2020-01-03 10:59 | disposition home or self-care (01) ==
LOC: RT 11:00
PROVIDERS: PCP Family Medicine; Visit Provider Internal Medicine Critical Care Medicine
DX: E66.2 Morbid (severe) obesity with alveolar hypoventilation (principal)
CPT/HCPCS: 94010

== ENCOUNTER → 2021-07-11 10:39 | Outpatient (BNVA) | payer MEDICARE, MEDICAID, SELFPAY | PROVIDERS: PCP Family Medicine; Visit Provider Internal Medicine Critical Care Medicine | DX: J96.11 Chronic respiratory failure with hypoxia (principal); J96.12 Chronic respiratory failure with hypercapnia; J45.909 Unspecified asthma, uncomplicated; E66.2 Morbid (severe) obesity with alveolar hypoventilation | CPT/HCPCS: 99213 ==

== ENCOUNTER 2022-12-08 14:21 | Outpatient (CLI) | payer MEDICARE, MEDICAID, SELFPAY ==
--- NOTE | 2022-12-08 14:41 | CT_ITS ---
WS: [id number] CT ABDOMEN AND PELVIS WITH CONTRAST HISTORY: LEFT RENAL CYST, BLADDER WALL THICKENING TECHNIQUE: Imaging performed of the abdomen and pelvis with IV contrast. Single phase imaging of the abdomen. Coronal and sagittal reformats are submitted. All CT scans at [facility] use at [address] one of these dose optimization techniques: automated exposure control; mA and/or kV adjustment per patient size (includes targeted exams where dose is matched to clinical indication); or iterative re construction. IV CONTRAST: Omnipaque 350; 100 mL IV. Oral contrast: No DLP: 927.88 mGy.cm COMPARISON: 11/20/2014 and 02/01/2019 Lower thorax: Lung bases are clear. Heart is normal size. Small hiatal hernia. Liver/biliary system: Normal size with no intrahepatic dilatation. Gallbladder: Cholecystectomy. Pancreas: Normal size pancreas and pancreatic duct. No adjacent inflammation. Spleen: Normal size spleen. There are a few scattered low-attenuation lesions within the spleen. Adrenal glands: Normal. Right kidney: Normal. Left kidney: Normal size kidney with mild cortical thinning. There is a minimally complex cyst superi or pole measuring 3.3 x 3.6 cm. This cyst has been stable over multiple prior exams, at least since . No solid nodule. There is an additional lobulated cyst in the lower pole cortex which is al so stable. Aorta: Mild atherosclerosis with no aneurysm. Moderate calcification continues into the SMA and jorge c axis. Lymphadenopathy: None. Free fluid: None. GI tract: Stomach is nondistended. No small bowel obstruction or wall thickening. No evidence for zaid endicitis. The appendix is not definitely visualized. Diffuse mild constipation. Beginning within the sigmoid colon there is circumferential wall thickening with enhancement and surrounding pericolonic information. The inflammatory process extends to the urinary bladder wall. There is thickening of the LEFT lateral and fundal urinary bladder wall which is irregular. There are a few small foci of air c ontained within the submucosa of the sigmoid. Abdominal wall: Unremarkable abdominal wall. No hernia. Pelvis: Moderately well distended urinary bladder. There is bladder wall thickening measuring up to 1 .4 cm predominantly along the fundal portion and contiguous with the inflammatory process within the sigmoid colon. Bones: No destructive bone lesions. CT/CT abdomen pelvis w con* [id number] IMPRESSION: 1. Acute inflammatory process centered within the pelvis with contiguous invol vement of the sigmoid colon and urinary bladder mucosa. Long segment area of c ircumferential sigmoid wall thickening with extension to the urinary bladder.1 no air in the urinary bladder. Patient is at risk for colovesical fistula. Favo r these changes are probably inflammatory but neoplasm also needs to be exclude d. Sigmoid diverticulosis was identified on the prior study from 2019. 2. No ascites. 3. Prior cholecystectomy. 4. Mildly complex stable LEFT renal cyst. 5. Small hiatal hernia.
[2022-12-08 15:31] LABS: Blood Urea Nitrogen 7 mg/dL (8-23)
[2022-12-08] MEDS: iohexol 350 mg/mL 500 mL Btl (per mL) IV (16:16)
== END 2022-12-08 14:22 | disposition home or self-care (01) ==
PROVIDERS: PCP Family Medicine; Visit Provider Physician Assistant
DX: N28.1 Cyst of kidney, acquired (principal); N32.9 Bladder disorder, unspecified; K44.9 Diaphragmatic hernia without obstruction or gangrene
CPT/HCPCS: 74177; 82565; 84520; Q9967

== ENCOUNTER → 2023-01-01 11:23 | Outpatient (BNVA) | payer MEDICARE, MEDICAID, SELFPAY | PROVIDERS: PCP Family Medicine; Visit Provider Surgery | DX: R19.5 Other fecal abnormalities (principal); R10.9 Unspecified abdominal pain; K21.9 Gastro-esophageal reflux disease without esophagitis | CPT/HCPCS: 99203 ==

== ENCOUNTER 2023-02-27 06:24 | Day surgery (SDC) | payer MEDICARE, MEDICAID, SELFPAY ==
[2023-02-27 06:46] VITALS: BP 140/77; PULSE 73; RESP 20; TEMP 36.4; O2SAT 90; BMI 37.8
[2023-02-27] MEDS: sodium chloride 0.9% 1,000 ML 30 ML IV (06:59)
--- NOTE | 2023-02-27 07:03 | PC.NURSE ---
Pt arrived on unit with no oxygen, satting at 75% on room air. Pt informed staff that she is normally on 3L but [facility] told her that she did not need it.
[2023-02-27 07:15] LABS: Glucose Point of Care 136 mg/dL (70-110)
--- NOTE | 2023-02-27 07:34 | PM.HP ---
Providers/Chief Complaint Primary Care Provider: Smith Mallory MD Chief Complaint: R19.5, R10.9, K21.9 History of Present Illness Andie Cifuentes is a 82 year old female Review of Systems General: Reports: 10 or more systems reviewed and unremarkable except in HPI and below Medications/Allergies Home Medications Medication Instructions Recorded Confirmed Last Taken Type acetaminophen 325 mg tablet 650 mg PO Q4H PRN Pain 07/12/19 02/26/23 02/26/23 History (Tylenol) artificial tears(hypromellose) See Rx Instructions .Route .COMPLEX 07/12/19 02/26/23 02/26/23 History bisacodyl 10 mg rectal suppository 10 mg NH DAILY PRN Constipation 07/12/19 02/26/23 02/26/23 History citalopram 20 mg tablet (Celexa) 20 mg PO DAILY 07/12/19 02/26/23 02/25/23 History docusate sodium 100 mg capsule See Rx Instructions .Route .COMPLEX 07/12/19 02/26/23 02/25/23 History (Colace) folic acid 1 mg tablet 1 mg PO DAILY 07/12/19 02/26/23 02/25/23 History gabapentin 300 mg capsule 300 mg PO BID 07/12/19 02/26/23 02/25/23 History levothyroxine 75 mcg tablet 75 mcg PO DAILY 07/12/19 02/26/23 02/25/23 History loratadine 10 mg tablet 10 mg PO DAILY 07/12/19 02/26/23 02/25/23 History magnesium hydroxide 400 mg/5 mL 30 ml PO PRN 07/12/19 02/26/23 Unknown History oral suspension (Milk of Magnesia) metoprolol tartrate 25 mg tablet 25 mg PO BID 07/12/19 02/26/23 02/25/23 History montelukast 10 mg tablet 10 mg PO DAILY 07/12/19 02/26/23 02/25/23 History (Singulair) nitroglycerin 0.4 mg sublingual 0.4 mg sublingual Q5M PRN Chest 07/12/19 02/26/23 Unknown History tablet (Nitrostat) Pain sulfasalazine 500 mg tablet 500 mg PO BID 07/12/19 02/26/23 02/25/23 History tamsulosin 0.4 mg capsule (Flomax) 0.4 mg PO DAILY 07/12/19 02/26/23 02/25/23 History tramadol 50 mg tablet (Ultram) See Rx Instructions .Route .COMPLEX 07/12/19 02/26/23 02/25/23 History trazodone 75 mg PO BEDTIME 07/12/19 02/26/23 02/25/23 History cyanocobalamin (vitamin B-12) 1,000 mcg IM .[id number] 08/13/20 02/26/23 Unknown History 1,000 mcg/mL injection kit (B-12 Compliance) diclofenac sodium 1 % topical gel 2 g topical QID PRN Pain 08/13/20 02/26/23 Unknown History (Arthritis Pain (diclofenac)) latanoprost 0.005 % eye drops 1 drp ophthalmic (eye) DAILY 08/13/20 02/26/23 02/25/23 History melatonin 3 mg tablet 3 mg PO DAILY 08/13/20 02/26/23 02/25/23 History adalimumab 40 mg/0.4 mL 40 mg SUBCUT Q7D 10/29/22 02/26/23 02/25/23 History subcutaneous syringe kit (Humira(CF)) pantoprazole 40 mg tablet,delayed 40 mg PO DAILY 02/26/23 02/26/23 02/25/23 History release (Protonix) polyethylene glycol 3350 17 gram 17 g PO DAILY 02/26/23 02/26/23 02/25/23 History oral powder packet (Miralax) rosuvastatin 10 mg tablet (Crestor) 10 mg PO DAILY 02/26/23 02/26/23 02/25/23 History Allergies Allergy/AdvReac Type Severity Reaction Status Date / Time aspirin Allergy Unknown Unknown Verified 02/26/23 08:06 celecoxib [From Celebrex] Allergy Unknown Unknown Verified 02/26/23 08:06 latex Allergy Unknown Unknown Verified 02/26/23 08:06 PFSH Acute PFSH: Medical History (Updated 01/01/23 @ 11:57 by Joe Huerta DO) Alzheimer's dementia Chronic diastolic (congestive) heart failure Coronary artery disease History of COPD Hyperlipidemia Hypertension Hypothyroidism Normocytic anemia Obesity Obstructive sleep apnea Rheumatoid arthritis Surgical History History of back surgery History of hemorrhoidectomy History of hysterectomy Hx of cholecystectomy Family History Mother Diabetes Father Diabetes CAD (coronary artery disease) Social History Smoking and tobacco/nicotine status: never used tobacco/nicotine Alcohol intake: never Substance/Drug Use: never Lives independently: No Housing: [facility] Marital status: Current occupational status: disabled Do you think of yourself as: Straight/Heterosexual Current gender identity: Female Vitals/I&O/Wt Last Vital Signs Temp 97.5 F L 02/27/23 06:46 Pulse 73 02/27/23 06:46 Resp 20 H 02/27/23 06:46 BP 140/77 02/27/23 06:46 Pulse Ox 90 02/27/23 06:46 O2 Del Method Nasal Cannula 02/27/23 06:46 O2 Flow Rate 3 02/27/23 06:46 Weight last 48 hrs Weight 227 lb A&P Assessment and plan (1) GERD (gastroesophageal reflux disease): (2) Abdominal pain: (3) Loose stools: Plan EGD and colonoscopy Attestations Medical Necessity Statement*: Home Coding Level of Care Code Acute Code for g Fwd Diagnoses GERD (gastroesophageal reflux disease) K21.9 Abdominal pain R10.9 Loose stools R19.5
[2023-02-27 08:12] VITALS: BP 112/65; PULSE 74; RESP 16; TEMP 36.1; O2SAT 94
--- NOTE | 2023-02-27 08:56 | ANE.PACU2 ---
Inpatient post-anesthesia follow up: Airway intact: Yes Vital signs: Temperature 97 F Pulse Rate 73 Respiratory Rate 16 Blood Pressure 126/60 Pulse Oximetry 96 Oxygen Delivery Me thod Nasal Cannula Oxygen Flow Rate 4 Fraction of Inspir ed Oxygen Hydration adequate: Yes Nausea and vomiting: No Pain level: 1 Mental status: Baseline
== END 2023-02-27 09:15 | disposition home or self-care (01) ==
PROVIDERS: PCP Family Medicine; Visit Provider Surgery
PROC: 0DJ08ZZ Inspection of Upper Intestinal Tract, Via Natural or Artificial Opening Endoscopic (ICD-10-PCS; CPT 43235; principal; 2023-02-27 07:30)
PROC: 0DJD8ZZ Inspection of Lower Intestinal Tract, Via Natural or Artificial Opening Endoscopic (ICD-10-PCS; CPT 45330; 2023-02-27 07:30)
DX: K21.9 Gastro-esophageal reflux disease without esophagitis (principal); K22.2 Esophageal obstruction; K44.9 Diaphragmatic hernia without obstruction or gangrene; K29.50 Unspecified chronic gastritis without bleeding; R19.5 Other fecal abnormalities; J44.9 Chronic obstructive pulmonary disease, unspecified; E78.5 Hyperlipidemia, unspecified; E66.9 Obesity, unspecified; Z68.37 Body mass index [BMI] 37.0-37.9, adult; G47.33 Obstructive sleep apnea (adult) (pediatric); M06.9 Rheumatoid arthritis, unspecified
CPT/HCPCS: 36416; 43239; 43249; 45331; 45335; 82962; 88305; 88342; J2704; J7030

== ENCOUNTER → 2023-03-12 11:45 | Outpatient (BNVA) | payer MEDICARE, MEDICAID, SELFPAY | PROVIDERS: PCP Family Medicine; Visit Provider Surgery | DX: Z09 Encounter for follow-up examination after completed treatment for conditions other than malignant neoplasm (principal) | CPT/HCPCS: 99213 ==

== ENCOUNTER 2023-03-24 05:45 | Inpatient (IN) | payer MEDICARE, MEDICAID, SELFPAY ==
[2023-03-24] VITALS (62 sets, daily range): BP systolic 97–153; BP diastolic 59–81; PULSE 83–112; RESP 16–36; TEMP 36.4–37.7; O2SAT 86–96; BMI 38.2
--- NOTE | 2023-03-24 05:47 | XR_ITS ---
WS: [id number] Exam: XR chest 1V portable [id number] Date/Time of Exam: 03/24/2023 5:47 AM Reason For Exam: dyspnea/cough Comparison 09/26/2019. The lungs are fully expanded and clear. Chronic interstitial changes. Cardiomediastinal silhouette is unremarkable for AP portable technique. No pleural effusions. Degenerative change of the thoracic sp ine and RIGHT shoulder. Monitoring leads superimpose the chest. Bilateral apical pleural thickening. IMPRESSION: 1. No acute cardiopulmonary finding. 2. Minor chronic findings as noted above.
--- NOTE | 2023-03-24 05:49 | ED_ITS ---
HPI - General Adult General: Chief complaint: Shortness of Breath/Dyspnea Stated complaint: lethargic Time Seen by Provider: 03/24/23 05:46 Source: patient, RN notes reviewed and old records reviewed Mode of arrival: EMS Limitations: altered mental status History of Present Illness: 82-year-old female presents emergency room via EMS was reported to be lethargic at the [place] [facility] poorly responsive and sent in via EMS. She was found with O2 sats in the 60s she is not normally on oxygen she was started on 6 L by nasal cannula her oxygen sats improved when EMS arrived she was given Narcan and she began to open her eyes and be somewhat responsive. She is responsive here she is able to tell us her name and respond to verbal stimuli responds to some simple questions. Her last known well was 8 hours ago she has no localizing neurologic deficits at this time. Onset (ago): unknown Relieving factors: none Exacerbating factors: none Associated symptoms: Reports confusion; Deny chest pain, cough, diaphoresis, decreased appetite, dyspnea, fevers/chills, malaise, seizures, short of breath, vomiting or weakness Treatments prior to arrival: none Review of Systems Narrative: Veracity of review of systems uncertain given patient's dementia and poor responsiveness Const: Denies: fever(s), chills, malaise or diaphoresis Card: Denies: chest pain Resp: Denies: dyspnea GI: Denies: abdominal pain or vomiting : Denies: dysuria Musc: Denies: neck pain or back pain Neuro: Reports: confusion PFSH ED PFSH: Medical History (Updated 03/25/23 @ 06:41 by Amrit Kidd DO) Alzheimer's dementia Aphasia Chronic diastolic (congestive) heart failure Coronary artery disease History of COPD Hyperlipidemia Hypertension Hypothyroidism Neoplasm of sigmoid colon Normocytic anemia Obesity Obstructive sleep apnea Rheumatoid arthritis Surgical History History of back surgery History of hemorrhoidectomy History of hysterectomy Hx of cholecystectomy Family History Mother Diabetes Father Diabetes CAD (coronary artery disease) Social History Smoking and tobacco/nicotine status: never used tobacco/nicotine Alcohol intake: never Substance/Drug Use: never Lives independently: No Housing: Alf Marital status: Current occupational status: disabled Do you think of yourself as: Straight/Heterosexual Current gender identity: Female Physical Exam Const: COMMON NORMALS: no acute distress GENERAL APPEARANCE: cooperative and comfortable HENMT: COMMON NORMALS: normocephalic, atraumatic and hearing grossly normal bilaterally HEAD & SCALP: normocephalic and atraumatic Resp: COMMON NORMALS: normal respiratory effort, No retractions, No use of accessory muscles and clear to auscultation bilaterally AUSCULTATION: clear to auscultation bilaterally Cardio: COMMON NORMALS: regular rate, regular rhythm and No murmurs present (Cardio) RATE: regular rate RHYTHM: regular rhythm GI: COMMON NORMALS: Soft to palpation and No hepatosplenomegaly present AUSCULTATION: Yes normoactive bowel sounds PALPATION: Yes Soft to palpation, No Tenderness to palpation present (GI), No Guarding due to palpation present (GI) and Yes No hepatosplenomegaly present Extremity: COMMON NORMALS: normal to inspection, capillary refill normal, no clubbing, cyanosis or edema, no calf tenderness and no pedal edema Skin: COMMON NORMALS: no rashes or lesions noted GENERAL SKIN EXAM: no rashes or lesions noted Course Vital Signs: Vital signs: Vital Signs Temperature 98.3 F 03/25/23 04:00 Pulse Rate 95 03/25/23 05:41 Respiratory Rate 17 03/25/23 04:00 Blood Pressure 118/68 03/25/23 04:00 Pulse Oximetry 95 03/25/23 04:00 Oxygen Delivery Me thod Oxymask 03/25/23 04:00 Oxygen Flow Rate 3 03/25/23 01:58 [facility] - General Adult Medical Decision Making Acute encephalitis. CT shows colitis recent colonoscopy with biopsies a question of possible sigmoid tumor. Ammonia level slightly elevated. Discussed with hospitalist orders written will admit Differential Diagnosis CVA infectious causes stroke intracranial bleed sepsis Medical Records I reviewed the patient's medical records. Lab Data I reviewed the patient's lab results. 03/25/23 05:04 03/25/23 05:04 Laboratory Results WBC 18.90 10^3/uL (3.29-11.43) H 03/24/23 05:50 RBC 4.35 10^6/uL (3.85-5.65) 03/24/23 05:50 Hgb 12.20 g/dL (11.27-16.99) 03/24/23 05:50 Hct 40.9 % (36-47) 03/24/23 05:50 MCV 94.0 fl (85-98) 03/24/23 05:50 MCH 28.0 pg (27-33) 03/24/23 05:50 MCHC 29.8 g/dL (30-55) L 03/24/23 05:50 RDW 14.6 % (12.1-15.1) 03/24/23 05:50 Plt Count 168 10^3/cmm (157-399) 03/24/23 05:50 MPV 10.8 fL (7.4-10.4) H 03/24/23 05:50 Neut % (Auto) 91.2 % 03/24/23 05:50 Lymph % (Auto) 1.7 % 03/24/23 05:50 [place] % (Auto) 6.0 % 03/24/23 05:50 Eos % (Auto) 0.0 % 03/24/23 05:50 Baso % (Auto) 0.3 % 03/24/23 05:50 Neut # (Auto) 17.22 10^3/uL (1.8-7.7) H 03/24/23 05:50 Lymph # (Auto) 0.3 10^3/uL (0.8-4.8) L 03/24/23 05:50 [place] # (Auto) 1.1 10^3/uL (0.2-0.9) H 03/24/23 05:50 Eos # (Auto) 0.0 10^3/uL (0.0-0.8) 03/24/23 05:50 Baso # (Auto) 0.1 10^3/uL (0.0-0.1) 03/24/23 05:50 Nucleated RBC % (auto) 0 % 03/24/23 05:50 Nucleated RBCs # 0.0 /100WBC 03/24/23 05:50 Specimen Type Arterial 03/24/23 05:52 Sample Site Radial, left 03/24/23 05:52 ABG pH 7.41 (7.35-7.45) 03/24/23 05:52 ABG pCO2 55.4 mmHg (35-45) H 03/24/23 05:52 ABG pO2 66.3 mmHg (80.0-100.0) L 03/24/23 05:52 ABG HCO3 35.0 mmol/L (22-26) H 03/24/23 05:52 ABG O2 Saturation 92.3 03/24/23 05:52 ABG Base Excess 8.6 mmol/L (-2.0-2.0) H 03/24/23 05:52 Casey Test Pos 03/24/23 05:52 A-a O2 Gradient 2.3 mmHg (5-10) L 03/24/23 05:52 Hematocrit 37.7 % (37-47) 03/24/23 05:52 Hgb O2 Saturation 90.6 % (95-100) L 03/24/23 05:52 Carboxyhemoglobin 0.8 %THgb (0.4-20.1) 03/24/23 05:52 Methemoglobin 1.0 % (0.4-1.5) 03/24/23 05:52 Total Hemoglobin 12.3 g/dL (12-16) 03/24/23 05:52 Sodium 135.0 mmol/L (131-143) 03/24/23 05:52 Potassium 4.0 mmol/L (3.5-5.0) 03/24/23 05:52 Glucose 186.0 mg/dL (70-115) H 03/24/23 05:52 Ionized Calcium 1.2 mmol/L (1.1-1.4) 03/24/23 05:52 O2 Delivery Device Nc 03/24/23 05:52 O2 Liters/Min 3.5 % 03/24/23 05:52 Drilling Rig Operator ID [place] 03/24/23 05:52 Sodium 134 mmol/L (136-145) L 03/24/23 05:50 Potassium 4.3 mmol/L (3.5-5.1) 03/24/23 05:50 Chloride 92 mmol/L (98-107) L 03/24/23 05:50 Carbon Dioxide 34 mmol/L (22-29) H 03/24/23 05:50 Anion Gap 12.3 (5-19) 03/24/23 05:50 BUN 9 mg/dL (8-23) 03/24/23 05:50 Creatinine 0.6 mg/dL (0.5-0.9) 03/24/23 05:50 GFR Calculation Not Reportable 03/24/23 05:50 Glucose 182 mg/dL (65-115) H 03/24/23 05:50 POC Glucose 201 mg/dL (70-110) H 03/24/23 05:55 Calculated Osmolality 281 mOsm/kg (285-295) L 03/24/23 05:50 Lactic Acid 1.9 mmol/L (0.5-2.2) 03/24/23 06:00 Calcium 8.9 mg/dL (8.5-10.5) 03/24/23 05:50 Total Bilirubin 1.0 mg/dL (0.15-1.2) 03/24/23 05:50 AST 29 U/L (0-32) 03/24/23 05:50 ALT 17 U/L (0-33) 03/24/23 05:50 Alkaline Phosphatase 114 U/L (35-105) H 03/24/23 05:50 Ammonia 78 umol/L (11-51) H 03/24/23 10:35 Troponin T Baseline 22 ng/L (0-10) H 03/24/23 05:50 Troponin T 120 Minute 22.91 ng/L (0-10) H 03/24/23 07:54 Delta Troponin T 0.91 ABS# (0-10) 03/24/23 07:54 Troponin T Hi Sens 6Hr 22.55 ng/L (0-10) H 03/24/23 11:41 Troponin T Hi Sens 6Hr Delta 0.55 ng/L (0-12) 03/24/23 11:41 NT-Pro-B Natriuret Pep 370 pg/mL (0-450) 03/24/23 05:50 Total Protein 7.2 g/dL (6.6-8.7) 03/24/23 05:50 Albumin 3.5 g/dL (3.5-5.2) 03/24/23 05:50 Globulin 3.7 g/dL (1.3-4.6) 03/24/23 05:50 Lipase 9 U/L (13-60) L 03/24/23 07:54 Urine Color Yellow (Yellow) 03/24/23 06:06 Urine Appearance Sl hazy (CLEAR) A 03/24/23 06:06 Urine pH 6 (5-7) 03/24/23 06:06 Ur Specific [place] 1.015 (1.005-1.030) 03/24/23 06:06 Urine Protein 1+ (Negative) H 03/24/23 06:06 Urine Glucose (UA) Norm (Normal) 03/24/23 06:06 Urine Ketones 1+ (Negative) H 03/24/23 06:06 Urine Blood 2+ (Negative) H 03/24/23 06:06 Urine Nitrate Negative (Negative) 03/24/23 06:06 Urine Bilirubin 1+ (Negative) H 03/24/23 06:06 Urine Urobilinogen 4 mg/dL (Negative) H 03/24/23 06:06 Ur Leukocyte Esterase Negative (Negative) 03/24/23 06:06 Urine RBC 0-4 /hpf (0-2) H 03/24/23 06:06 Urine WBC 5-10 /hpf (0-5) H 03/24/23 06:06 Ur Squamous Epith Cells 5-10 /hpf (0-5) H 03/24/23 06:06 Amorphous Sediment Not Reportable 03/24/23 06:06 Urine Bacteria 1+ /hpf (NONE) H 03/24/23 06:06 Hyaline Casts 0-4 /lpf H 03/24/23 06:06 Urine Mucus Trace /hpf 03/24/23 06:06 Coronavirus 229E (PCR) Not detected (NOT DETECT) 03/24/23 11:20 Influenza Type A Ag negative (Negative) 03/24/23 11:20 Influenza Type B Ag negative (Negative) 03/24/23 11:20 SARS-CoV-2 (PCR) Not detected (NOT DETECT) 03/24/23 11:20 All radiology interpretation(s) finalized by discharge Discharge Plan Discharge Patient Disposition: Admitted As Inpatient Admit Provider: Hector Aleman Clinical Impression: Colitis, Neoplasm of sigmoid colon, Acute encephalopathy, Alzheimer's dementia Condition: Stable Coding Level of Care Code ED Dietary Service Aide for Jordi Robledo
[2023-03-24 05:54] LABS: Basophils # 0.1 10^3/uL (0.0-0.1); Basophils % 0.3 %; Hematocrit 40.9 % (36-47); Lymphocytes # 0.3 10^3/uL (0.8-4.8); Lymphocytes % 1.7 %; Mean Corpuscular HGB Conc 29.8 g/dL (30-55); Mean Platelet Volume 10.8 fL (7.4-10.4); Monocytes # 1.1 10^3/uL (0.2-0.9); Neutrophils # 17.22 10^3/uL (1.8-7.7); Neutrophils % 91.2 %; Nucleated Red Blood Cells % 0 %; Platelet Count 168 10^3/cmm (157-399); Red Blood Count 4.35 10^6/uL (3.85-5.65); Red Cell Distribution Width 14.6 % (12.1-15.1)
--- NOTE | 2023-03-24 05:56 | ECG_ITS ---
[facility] Test Date: 2023-03-24 Pat Name: Andie Cifuentes Department: Room: Gender: Female Electrical Line Mechanic: : 1940 Requested By: Amrit De Jesus Order Number: [id number] Jaimee MD: Mindi Brasher M.D. Measurements Intervals Bode Rate: 110 P: 15 LA: 168 QRS: -45 QRSD: 88 T: 81 QT: 336 QTc: 455 Interpretive Statements SINUS TACHYCARDIA LEFT AXIS DEVIATION [QRS AXIS < -30] LOW QRS VOLTAGE IN PRECORDIAL LEADS [QRS DEFLECTION < 1.0 mV IN CHEST LEADS] ANTEROSEPTAL MYOCARDIAL INFARCTION , OF INDETERMINATE AGE [40+ ms Q WAVE IN V1-V4] Compared to ECG 09/26/2019 10:10:50 Low QRS voltage now present Sinus rhythm no longer present Myocardial infarct finding still present Electronically Signed On 03-24-2023 23:15:37 MANAGER TRANSMISSION by Mindi Brasher M.D. [id number]
[2023-03-24 06:03] LABS: ABG PCO2 55.4 mmHg (35-45); ABG PH Result 7.41 (7.35-7.45); Alveolar-Arterial Oxygen Gradi 2.3 mmHg (5-10); Arterial Blood Gas Hematocrit 37.7 % (37-47); Base Excess ABG 8.6 mmol/L (-2.0-2.0); Blood Gas Allen Test Pos; Blood Gas LPM 3.5 %; Blood Gas Operator Identificat WALCI; Blood Gas Sample Site Radial, left; Blood Gas Sample Type Arterial; Carboxyhemoglobin 0.8 %THgb (0.4-20.1); HGB O2 Sat 90.6 % (95-100); Ionized Calcium Level - ABG 1.2 mmol/L (1.1-1.4); Oxygen Device NC; Oxygen Saturation ABG 92.3; PO2 ABG 66.3 mmHg (80.0-100.0); Total Hemoglobin 12.3 g/dL (12-16)
[2023-03-24 06:08] LABS: Glucose Point of Care 201 mg/dL (70-110)
[2023-03-24 06:12] LABS: Troponin(5th) Baseline 22 ng/L (0-10)
[2023-03-24 06:14] LABS: Alanine Aminotransferase 17 U/L (0-33); Albumin Level 3.5 g/dL (3.5-5.2); Alkaline Phosphatase 114 U/L (35-105); Anion Gap 12.3 (5-19); Aspartate Amino Transferase 29 U/L (0-32); Blood Urea Nitrogen 9 mg/dL (8-23); Calcium 8.9 mg/dL (8.5-10.5); Carbon Dioxide 34 mmol/L (22-29); Chloride 92 mmol/L (98-107); Creatinine Clr Calc Pharmacy 66.1095; Globulin 3.7 g/dL (1.3-4.6); Glucose 182 mg/dL (65-115); Osmolality Calculated 281 mOsm/kg (285-295); Potassium 4.3 mmol/L (3.5-5.1); Sodium 134 mmol/L (136-145); Total Protein 7.2 g/dL (6.6-8.7)
--- NOTE | 2023-03-24 06:18 | PC.NURSE ---
pt appears to be lethargic and SOB. blood glucose [address] Kidd notified. oxygen saturation 92% on 4L NC
[2023-03-24 06:21] LABS: Lactic Sepsis W/Reflex 1.9 mmol/L (0.5-2.2)
[2023-03-24 06:24] LABS: Bilirubin Urine 1+ (Negative); Blood Urine 2+ (Negative); Glucose Urine UA Norm (Normal); Ketones Urine 1+ (Negative); Nitrate Urine Negative (Negative); Protein Urine 1+ (Negative); Specific Gravity, Urine 1.015 (1.005-1.030); Urine Appearance SL Hazy (CLEAR); Urine Color Yellow (Yellow); pH Urine 6 (5-7)
[2023-03-24 06:25] LABS: Add Urine Culture? No; Add Urine Microscopic? YES; Bacteria Urine 1+ /hpf; Hyaline Casts Urine 0-4 /lpf; Leukocyte Esterase Urine Negative (Negative); Mucus Urine TRACE /hpf; RBC Urine 0-4 /hpf (0-2); Urobilinogen Urine 4 mg/dL (Negative)
--- NOTE | 2023-03-24 07:11 | CT_ITS ---
WS: [id number] CTA OF THE CHEST WITH PULMONARY EMBOLISM PROTOCOL TECHNIQUE: High-resolution contrast enhanced CTA of the chest with coronal and sagittal reformatted i mages with pulmonary embolism protocol. MIP images are also reviewed. CLINICAL INFORMATION: hypoxia/tachycardia COMPARISON: None. DLP: 498.[address] scans at [facility] use at least one of these dose optimization techniques: automated e xposure control; mA and/or kV adjustment per patient size (includes targeted exams where dose is matc hed to clinical indication); or iterative reconstruction. FINDINGS: Some images degraded by respiratory artifact. Proximal main pulmonary arteries are normal. Normal segmental and subsegmental pulmonary arteries. Di stalmost pulmonary arteries not well visualized due to motion artifact. Normal caliber thoracic aorta . Aortic calcification. Coronary calcification. Fibrosis in the RIGHT greater than LEFT upper lobes. Subsegmental atelectasis in the lung bases. No focal consolidation. Slight bibasilar atelectasis. Cholecystectomy clips. Adrenal glands are normal. Moderate esophageal hiatal hernia. Ankylosis thorac ic spine. IMPRESSION: 1. No evidence of pulmonary embolus. 2. Slight bibasilar atelectasis. 3. Subsegmental atelectasis in the RIGHT upper lobe and both lower lobes.
--- NOTE | 2023-03-24 07:24 | PC.PHAR ---
pt is from [facility]-per lalit nurse at [facility] pt had no meds today
[2023-03-24 07:38] LABS: NT Pro B Type Natriuretic Pept 370 pg/mL (0-450)
[2023-03-24] MEDS: FUROsemide 10 mg/mL SDV 4mL 40 MG IVP (07:45)
[2023-03-24] MEDS: iohexol 350 mg/mL 500 mL Btl (per mL) IV ×2 (07:45→10:20)
--- NOTE | 2023-03-24 07:47 | ECG_ITS ---
[facility] Test Date: 2023-03-24 Pat Name: Andie Cifuentes Department: Room: Gender: Female Machine Adjuster: : 1940 Requested By: Amrit De Jesus Order Number: [id number] Jaimee MD: Mindi Brasher M.D. Measurements Intervals Scott Rate: 98 P: 69 OK: 210 QRS: -52 QRSD: 91 T: 78 QT: 380 QTc: 487 Interpretive Statements SINUS RHYTHM WITH FIRST DEGREE AV BLOCK LEFT AXIS DEVIATION [QRS AXIS < -30] LOW QRS VOLTAGE IN PRECORDIAL LEADS [QRS DEFLECTION < 1.0 mV IN CHEST LEADS] ANTEROSEPTAL MYOCARDIAL INFARCTION , OF INDETERMINATE AGE [40+ ms Q WAVE IN V1-V4] Compared to ECG 03/24/2023 05:56:43 First degree AV block now present Sinus tachycardia no longer present Myocardial infarct finding still present Electronically Signed On 03-24-2023 23:24:59 BROADCAST TRANSMITTER OPERATOR by Mindi Brasher M.D. [id number]
[2023-03-24 08:22] LABS: Troponin 5 2HR 22.91 ng/L (0-10); Troponin 5 2HR Delta 0.91 ABS# (0-10)
--- NOTE | 2023-03-24 10:07 | CT_ITS ---
WS: [id number] CT HEAD TECHNIQUE: Noncontrast CT of the head obtained from the skullbase to the vertex. CLINICAL INFORMATION: ams COMPARISON: CT 09/26/2019 DLP: 1109.[address] scans at [facility] use at least one of these dose optimization techniques: automated e xposure control; mA and/or kV adjustment per patient size (includes targeted exams where dose is matc hed to clinical indication); or iterative reconstruction. FINDINGS: Contrast administered earlier today with increased attenuation of the dural sinuses. No evidence of intracranial hemorrhage or mass effect. Ventricular system and basal cisterns are peña nt. Moderate small vessel changes with mild parenchymal volume loss. No extra-axial fluid collections . No evidence of mass or mass effect. Fluid opacification RIGHT mastoid air cells with mucosal thickening RIGHT middle ear. LEFT mastoid ai r cells are well aerated. LEFT sphenoid sinusitis. Vascular calcification. Normal posterior nasophary nx. IMPRESSION: Contrast administered earlier today for PE study 1. No evidence of intracranial hemorrhage or mass effect. 2. RIGHT mastoid effusion with mucosal thickening RIGHT middle ear. 3. Sphenoid sinusitis 4. No acute intracranial findings.
--- NOTE | 2023-03-24 10:08 | CT_ITS ---
WS: [id number] CT ABDOMEN PELVIS TECHNIQUE: Contrast-enhanced CT of the abdomen and pelvis with coronal and sagittal reformatted image s. CLINICAL INFORMATION: abd pain COMPARISON: None. DLP: 1546.[address] scans at [facility] use at least one of these dose optimization techniques: automated e xposure control; mA and/or kV adjustment per patient size (includes targeted exams where dose is matc hed to clinical indication); or iterative reconstruction. FINDINGS: Bibasal atelectasis with interstitial edema in the lung bases. Mild diffuse fatty infiltration of the liver. Prior cholecystectomy. Normal spleen. Moderate esophageal hiatal hernia. Normal portal vein a nd splenic vein. Mild fatty atrophy of the pancreas. Adrenal glands are normal. Bilateral renal corti marissa atrophy. Stable LEFT renal cystic lesion. No hydronephrosis in either kidney. Contrast visualized in the bladder. Normal caliber abdominal aorta. Thickening with inflammatory stranding and edema involving the sigmoi d colon similar in appearance to 12/08/2022. Recommend correlation with colitis or diverticulitis. No drainable abscess or fluid collection. Inflamed sigmoid colon closely abuts the bladder and vaginal c uff. Patient at risk for colovesical and colovaginal fistula. This is also unchanged in appearance. No free fluid in the abdomen or pelvis. No high-grade small or large bowel obstruction. A few air-flu id levels in the transverse colon. Spondylitic changes lumbar spine. IMPRESSION: 1. Inflamed segment of sigmoid colon suspicious for colitis or diverticulitis similar in appearance to previous. 2. Inflamed sigmoid colon abuts the bladder and vaginal cuff. Patient risk for colovesical and colov aginal fistula also unchanged. Recommend follow-up to resolution. This could be further evaluated wit h endoscopy to assess for neoplastic stricture. Neoplasm not entirely excluded. 3. Mild diffuse fatty infiltration of the liver. 4. Moderate esophageal hiatal hernia. 5. Bibasilar atelectasis with interstitial edema in the lung bases.
--- NOTE | 2023-03-24 10:48 | P.HP_ITS ---
Providers/Chief Complaint Admitting Physician: Hector Aleman MD, hospitalist Primary Care Provider: Smith Mallory MD Chief Complaint: lethargic History of Present Illness Andie Cifuentes is a 82 year old female presenting from the custodial with concerns of lethargy. Patient has some dementia, and is unable to answer questions either from that or from her lethargy. I have called the custodial and have yet to make it through to talk with the nurse. I have visited with the emergency department physician. History he received from EMS was they were called for lethargy, she was poorly responsive, her initial saturation was low and she was placed on 6 L of oxygen. They gave her Narcan with some improvement, but she is not on any narcotics or new medications. She is on tramadol but this does not appear to be new. There is no history of any recent fever, or localizing neurologic signs. She was recently diagnosed with a colonic tumor, and was to see colorectal surgeon. This was diagnosed in February. I have confirmed with family and nursing facility that they decided not to keep this appointment, they thought it was too big of a risk for the patient to have any surgery on her colonic tumor. I visited with daughter regarding her biopsy results, the concern that this tumor may be obstructive with time, and her current clinical problems. Review of Systems General: Reports: ROS unobtainable due to mental status Medications/Allergies Home Medications Medication Instructions Recorded Confirmed Last Taken Type acetaminophen 325 mg tablet 650 mg PO Q4H PRN Pain 07/12/19 03/24/23 02/26/23 History (Tylenol) bisacodyl 10 mg rectal suppository 10 mg MI DAILY PRN Constipation 07/12/19 03/24/23 02/26/23 History citalopram 20 mg tablet (Celexa) 20 mg PO DAILY 07/12/19 03/24/23 02/25/23 History folic acid 1 mg tablet 1 mg PO DAILY 07/12/19 03/24/23 02/25/23 History gabapentin 300 mg capsule 300 mg PO BID 07/12/19 03/24/23 02/25/23 History levothyroxine 75 mcg tablet 37.5 mcg PO DAILY 07/12/19 03/24/23 02/25/23 History loratadine 10 mg tablet 10 mg PO DAILY 07/12/19 03/24/23 02/25/23 History magnesium hydroxide 400 mg/5 mL 30 ml PO DAILY PRN unknown 07/12/19 03/24/23 Unknown History oral suspension (Milk of Magnesia) metoprolol tartrate 25 mg tablet 25 mg PO BID 07/12/19 03/24/23 02/25/23 History montelukast 10 mg tablet 10 mg PO DAILY 07/12/19 03/24/23 02/25/23 History (Singulair) sulfasalazine 500 mg tablet 500 mg PO BID 07/12/19 03/24/23 02/25/23 History tamsulosin 0.4 mg capsule (Flomax) 0.4 mg PO QAM 07/12/19 03/24/23 02/25/23 History diclofenac sodium 1 % topical gel 2 - 4 g topical BID PRN bilat knee 08/13/20 03/24/23 Unknown History (Arthritis Pain (diclofenac)) pain latanoprost 0.005 % eye drops 1 drp ophthalmic (eye) BEDTIME 08/13/20 03/24/23 02/25/23 History melatonin 3 mg tablet 6 mg PO BEDTIME 08/13/20 03/24/23 02/25/23 History pantoprazole 40 mg tablet,delayed 40 mg PO DAILY 02/26/23 03/24/23 02/25/23 History release (Protonix) polyethylene glycol 3350 17 gram 17 g PO DAILY 02/26/23 03/24/23 02/25/23 History oral powder packet (Miralax) rosuvastatin 10 mg tablet (Crestor) 10 mg PO DAILY 02/26/23 03/24/23 02/25/23 History adalimumab 40 mg/0.8 mL 40 mg SUBCUT Q7D 03/24/23 03/24/23 Unknown History subcutaneous syringe kit (Humira) aluminum-mag hydroxide-simethicone 30 ml PO Q4H PRN unknown 03/24/23 03/24/23 Unknown History 200 mg-200 mg-20 mg/5 mL oral susp cyanocobalamin (vitamin B-12) 1,000 mcg IM Q30D 03/24/23 03/24/23 Unknown History 1,000 mcg/mL injection solution fluticasone fur. 100 mcg-umeclid 1 inh inhalation DAILY 03/24/23 03/24/23 Unknown History 62.5 mcg-vilant 25 mcg inhalat.powder (Trelegy Ellipta) hydrogen peroxide 3 % solution See Rx Instructions .Route .COMPLEX 03/24/23 03/24/23 Unknown History nitroglycerin 0.4 mg sublingual 0.4 mg sublingual Q5M PRN Chest 03/24/23 03/24/23 Unknown History tablet (Nitrostat) Pain nystatin 100,000 unit/gram topical 1 applic topical BID PRN folds 03/24/23 03/24/23 Unknown History powder polyvinyl alcohol-povidone 0.5 1 drp ophthalmic (eye) Q12H 03/24/23 03/24/23 Unknown History %-0.6 % eye drops (Artificial Tears (polyvinyl alcohol/povidone)) sennosides 8.6 mg-docusate sodium 1 tab PO DAILY 03/24/23 03/24/23 Unknown History 50 mg tablet (Senna-S) sodium phosphates 19 gram-7 118 ml MI DAILY PRN Constipation 03/24/23 03/24/23 Unknown History gram/118 mL enema (Fleet Enema) tramadol 50 mg tablet 50 mg PO BEDTIME 03/24/23 03/24/23 Unknown History tramadol 50 mg tablet 50 mg PO TID PRN Pain 03/24/23 03/24/23 Unknown History vitamin A and D See Rx Instructions .Route .COMPLEX 03/24/23 03/24/23 Unknown History Allergies Allergy/AdvReac Type Severity Reaction Status Date / Time aspirin Allergy Unknown Unknown Verified 03/24/23 07:23 celecoxib [From Celebrex] Allergy Unknown Unknown Verified 03/24/23 07:23 latex Allergy Unknown Unknown Verified 03/24/23 07:23 PFSH Acute PFSH: Medical History (Updated 03/24/23 @ 12:40 by Hector Aleman MD) Alzheimer's dementia Aphasia Chronic diastolic (congestive) heart failure Coronary artery disease History of COPD Hyperlipidemia Hypertension Hypothyroidism Neoplasm of sigmoid colon Normocytic anemia Obesity Obstructive sleep apnea Rheumatoid arthritis Surgical History History of back surgery History of hemorrhoidectomy History of hysterectomy Hx of cholecystectomy Family History Mother Diabetes Father Diabetes CAD (coronary artery disease) Social History Smoking and tobacco/nicotine status: never used tobacco/nicotine Alcohol intake: never Substance/Drug Use: never Lives independently: No Housing: Skilled Nursing Marital status: Current occupational status: disabled Do you think of yourself as: Straight/Heterosexual Current gender identity: Female Vitals/I&O/Wt Last Vital Signs Temp 97.9 F 03/24/23 05:47 Pulse 91 03/24/23 09:00 Resp 20 H 03/24/23 09:00 BP 99/65 03/24/23 09:00 Pulse Ox 93 03/24/23 09:00 O2 Del Method Nasal Cannula 03/24/23 09:00 O2 Flow Rate 3 03/24/23 07:51 Weight last 48 hrs Weight 104.326 kg Physical Exam Narrative: General exam is white female, who opens eyes to verbal stimuli but I could not get her to speak. She would move her upper extremities but I could not get her to move her lower extremities. Neuro: See above HEENT: Atraumatic normocephalic. Oropharynx clear Neck is supple no lymphadenopathy thyromegaly Cardiovascular regular rate and rhythm without murmur Lungs clear Abdomen is protuberant, bowel sounds are noted. Slightly distended. No apparent pain. exam deferred Extremities no sinus clubbing edema, cap refill brisk Skin no rash Data 03/24/23 05:50 03/24/23 05:50 Other Labs: ABG demonstrates pH 7.41, PCO2 55, PO2 of 66 on 3.5 L LFTs are normal with the exception of an alk phos of 114. Lactic acid, calcium, albumin are all normal Lipase which I ordered is 9 Troponin is 22 with repeat of 22 Ammonia level elevated at 78 Urinalysis 0-4 reds, 5-10 whites and 5-10 squamous I have ordered an influenza and COVID Abdomen pelvis CT demonstrated inflamed segment of sigmoid colon, recently proven on endoscopy to be tumor, with concern of significant inflammation, at risk for colovaginal fistula, fatty infiltration of the liver, bibasilar atelectasis Head CT which I reviewed no acute changes Chest CTA atelectasis, no pulmonary embolism. I reviewed this as well EKG demonstrates sinus rhythm, left axis deviation, poor R wave progression, nonspecific ST-T wave changes A&P Assessment and plan (1) Colitis: Patient with evidence of inflammation, around her sigmoid colon, where she has recently been diagnosed with a colonic mass with stricture. Initiate and continue Zosyn IV Obtain blood cultures She is at risk for colonic vaginal fistula Family does not want any surgical intervention, therefore ultimately on discharge or if she does not improve significantly she may be a candidate for comfort/hospice (2) Aphasia: Patient with aphasia, as of this morning This may be consistent with acute metabolic encephalopathy from above, but cannot rule out stroke Consider initiation low-dose aspirin. She is listed as an allergy, will have to clarify continue statin. Hold metoprolol currently. Permissive hypertension. (3) Acute encephalopathy: Note the patient's ammonia level is high. Hydration Repeat tomorrow If we can determine p.o. 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 They are discussing and likely will arrange hospice on discharge (5) Fatty liver disease, nonalcoholic: Patient with fatty liver disease on CT Ammonia high See above (6) DM type 2 (diabetes mellitus, type 2): Sliding scale insulin (7) Chronic respiratory failure with hypoxia and hypercapnia: Continue oxygen, to keep saturation 88 to 92% Budesonide twice daily DuoNeb every 6 hours scheduled Plan Multiple other medical problems as outlined in past medical history Allow natural , discussed with family and confirmed on DNR nursing facility paperwork Lovenox for DVT prophylaxis Attestations Medical Necessity Statement*: Will require greater than 2 midnight stay for evaluation treatment of colitis with IV antibiotics Diagnoses Colitis K52.9 Aphasia R47.01 Acute encephalopathy G93.40 Neoplasm of sigmoid colon D49.0 Fatty liver disease, nonalcoholic K76.0 DM type 2 (diabetes mellitus, type 2) E11.9 Chronic respiratory failure with hypoxia and hypercapnia J96.11; J96.12 Time Spent (min) 47
[2023-03-24 11:12] LABS: Ammonia 78 umol/L (11-51)
[2023-03-24 11:45] LABS: Lipase 9 U/L (13-60)
[2023-03-24 11:47] LABS: Influenza A by IFA negative (Negative); Influenza B by IFA negative (Negative)
--- NOTE | 2023-03-24 11:53 | ECG_ITS ---
[facility] Test Date: 2023-03-24 Pat Name: Andie Cifuentes Department: Room: Gender: Female Driver/Merchandiser: : 1940 Requested By: Amrit De Jesus Order Number: [id number] Jaimee MD: Mindi Brasher M.D. Measurements Intervals [place] Rate: 88 P: 42 VT: 181 QRS: -43 QRSD: 89 T: 28 QT: 397 QTc: 481 Interpretive Statements SINUS RHYTHM LEFT AXIS DEVIATION [QRS AXIS < -30] ANTEROSEPTAL MYOCARDIAL INFARCTION , PROBABLY OLD [40+ ms Q WAVE IN V1-V4] Compared to ECG 03/24/2023 07:46:40 First degree AV block no longer present Myocardial infarct finding still present Electronically Signed On 03-24-2023 23:26:23 ACID WASHER OPERATOR by Mindi Brasher M.D. [email or web address]
[2023-03-24 12:23] LABS: Troponin 5 6HR 22.55 ng/L (0-10)
[2023-03-24 12:25] LABS: Troponin 5 6HR Delta 0.55 ng/L (0-12)
[2023-03-24 13:15] LABS: Adenovirus Not Detected (NOT DETECT); Chlamydia Pneumoniae Not Detected (NOT DETECT); Coronavirus 229E,HKU1,NL63,OC4 Not Detected (NOT DETECT); Human Metapneumovirus Not Detected (NOT DETECT); Human Rhinovirus/Enterovirus Not Detected (NOT DETECT); Influenza A Not Detected (NOT DETECT); Influenza A H1 Not Detected (NOT DETECT); Influenza A H1-2009 Not Detected (NOT DETECT); Influenza A H3 Not Detected (NOT DETECT); Influenza B Not Detected (NOT DETECT); Mycoplasma Pneumoniae Not Detected (NOT DETECT); Parainfluenza Virus Type 1 Not Detected (NOT DETECT); Parainfluenza Virus Type 2 Not Detected (NOT DETECT); Parainfluenza Virus Type 3 Not Detected (NOT DETECT); Parainfluenza Virus Type 4 Not Detected (NOT DETECT); Respiratory Syncytial Virus A Not Detected (NOT DETECT); Respiratory Syncytial Virus B Not Detected (NOT DETECT); SARS-COV-2 Not Detected (NOT DETECT)
[2023-03-24] MEDS: ipratropium-albuterol 3 mL Neb INHALATION ×2 (13:55→19:54)
[2023-03-24] MEDS: pantoprazole 40 mg SDV IVP (14:45)
[2023-03-24] MEDS: sodium chloride 0.9% 1,000 ML 75 ML IV (14:46)
[2023-03-24] MEDS: enoxaparin 40 mg/0.4 mL Syringe SUBCUT (14:46)
[2023-03-24] MEDS: ciprofloxacin 400 MG/200 ML PREMIX 200 MG IV (14:47)
[2023-03-24] MEDS: metroNIDAZOLE IV 500 MG/100 ML PREMIX 100 MG IV (16:09)
[2023-03-24 17:19] LABS: Glucose Point of Care 130 mg/dL (70-110)
[2023-03-24] MEDS: piperacillin-tazobactam 3.375 GM in sodium chloride 0.9% (plus) 50 ML IV (17:41)
[2023-03-24] MEDS: budesonide 0.5 mg/2 mL Neb INHALATION (19:53)
[2023-03-24 21:11] LABS: Glucose Point of Care 99 mg/dL (70-110)
[2023-03-25] VITALS (14 sets, daily range): BP systolic 106–140; BP diastolic 65–80; PULSE 63–98; RESP 16–18; TEMP 36.4–36.8; O2SAT 92–96
[2023-03-25] MEDS: piperacillin-tazobactam 3.375 GM in sodium chloride 0.9% (plus) 50 ML IV ×4 (00:34→23:59)
[2023-03-25] MEDS: ipratropium-albuterol 3 mL Neb INHALATION ×4 (01:57→19:45)
[2023-03-25] MEDS: acetaminophen 325 mg Tablet 650 MG PO ×2 (02:11→18:57)
[2023-03-25 05:11] LABS: Basophils % 0.3 %; Eosinophils % 0.1 %; Lymphocytes # 0.3 10^3/uL (0.8-4.8); Lymphocytes % 3.5 %; Mean Corpuscular HGB Conc 29.5 g/dL (30-55); Mean Corpuscular Hemoglobin 27.8 pg (27-33); Mean Corpuscular Volume 94.3 fl (85-98); Mean Platelet Volume 10.5 fL (7.4-10.4); Monocytes # 1.1 10^3/uL (0.2-0.9); Monocytes % 11.6 %; Neutrophils # 7.72 10^3/uL (1.8-7.7); Neutrophils % 84.2 %; Nucleated Red Blood Cells % 0 %; Platelet Count 159 10^3/cmm (157-399); Red Blood Count 4.03 10^6/uL (3.85-5.65); Red Cell Distribution Width 14.9 % (12.1-15.1); White Blood Count 9.17 10^3/uL (3.29-11.43)
[2023-03-25] MEDS: tamsulosin 0.4 mg Capsule PO (05:24)
[2023-03-25] MEDS: sodium chloride 0.9% 1,000 ML 75 ML IV ×2 (05:24→17:35)
[2023-03-25 05:27] LABS: Alanine Aminotransferase 18 U/L (0-33); Albumin Level 2.8 g/dL (3.5-5.2); Alkaline Phosphatase 105 U/L (35-105); Ammonia 35 umol/L (11-51); Anion Gap 13.7 (5-19); Aspartate Amino Transferase 24 U/L (0-32); Blood Urea Nitrogen 10 mg/dL (8-23); Calcium 8.9 mg/dL (8.5-10.5); Carbon Dioxide 33 mmol/L (22-29); Chloride 93 mmol/L (98-107); Globulin 3.8 g/dL (1.3-4.6); Glucose 147 mg/dL (65-115); Osmolality Calculated 284 mOsm/kg (285-295); Potassium 3.7 mmol/L (3.5-5.1); Sodium 136 mmol/L (136-145); Total Bilirubin 0.7 mg/dL (0.15-1.2); Total Protein 6.6 g/dL (6.6-8.7)
[2023-03-25 06:52] LABS: Glucose Point of Care 135 mg/dL (70-110)
[2023-03-25] MEDS: citalopram 20 mg Tablet PO (07:54)
[2023-03-25] MEDS: montelukast sodium 10 mg Tablet PO (07:54)
[2023-03-25] MEDS: loratadine 10 mg Tablet PO (07:54)
[2023-03-25] MEDS: budesonide 0.5 mg/2 mL Neb INHALATION ×2 (08:01→19:45)
[2023-03-25] MEDS: sennosides-docusate Tablet 1 TAB PO ×2 (08:25→17:31)
[2023-03-25] MEDS: polyethylene glycol 3350 Pkt 17 gm PO ×2 (08:25→17:31)
--- NOTE | 2023-03-25 08:29 | PC.NURSE ---
Bladder scan per Dr. Aleman with only 12 ml urine noted in the bladder
--- NOTE | 2023-03-25 08:37 | P.PN_ITS ---
Subjective Subjective: Andie is conversant this morning. She denies any abdominal pain. She states she feels okay. Nursing has done a bladder scan and it does not show a significant amount. Medications: Reviewed: Yes Vitals/I&O/Wt Last Vital Signs Temp 98.3 F 03/25/23 04:00 Pulse 95 03/25/23 08:00 Resp 16 03/25/23 08:00 BP 118/68 03/25/23 04:00 Pulse Ox 95 03/25/23 08:00 O2 Del Method Oxymask 03/25/23 08:00 O2 Flow Rate 3 03/25/23 08:00 03/24/23 03/25/23 03/25/23 22:59 06:59 14:59 Intake Total 350 / 350 1410 / 1760 Balance 350 / 350 1410 / 1760 Weight last 48 hrs Weight 97.692 kg Weight 98.6 kg Weight 104.326 kg Physical Exam Narrative: General exam is white female, opens her eyes, and carries on a complete conversation. Neuro: No obvious focal deficits Neck is supple no lymphadenopathy thyromegaly Cardiovascular regular rate and rhythm without murmur Lungs clear Abdomen is protuberant, bowel sounds are noted. I do not see any distention currently. Extremities no sinus clubbing edema, cap refill brisk Data 03/25/23 05:04 03/25/23 05:04 Micro: Microbiology 03/24/23 13:40 Blood Culture - Preliminary Blood SPECIMEN COLLECTED 03/24/23 13:35 Blood Culture - Preliminary Blood SPECIMEN COLLECTED A&P Assessment and plan (1) Colitis: Patient with evidence of inflammation, around her sigmoid colon, where she has recently been diagnosed with a colonic mass with stricture. Continue Zosyn IV Blood cultures negative to date She is at risk for colonic vaginal fistula Family does not want any surgical intervention, therefore ultimately on discharge or if she does not improve significantly she may be a candidate for comfort/hospice As she is improving we will initiate a p.o. diet, clear liquids initially Initiate a bowel regimen. We will want to make sure she is able to pass gas/stool prior to discharge considering her colonic stricture White blood cell count markedly improved Continue IV fluids until taking well p.o. CBC, CMP in the morning (2) Aphasia: Patient with aphasia, as of this morning This may be consistent with acute metabolic encephalopathy from above, but cannot rule out stroke Considering her improvement, this is most consistent with an acute metabolic encephalopathy that is now resolved. Resume her metoprolol. Continue to hold Neurontin. Will not resume tramadol. (3) Acute encephalopathy: Note the patient's ammonia level is high. 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 They are discussing and likely will arrange hospice on disch arge (5) Fatty liver disease, nonalcoholic: Patient with fatty liver disease on CT Repeat ammonia level normal (6) DM type 2 (diabetes mellitus, type 2): Sliding scale insulin (7) Chronic respiratory failure with hypoxia and hypercapnia: Continue oxygen, to keep saturation 88 to 92% Budesonide twice daily DuoNeb every 6 hours scheduled Plan Multiple other medical problems as outlined in past medical history Allow natural , discussed with family and confirmed on DNR nursing facility paperwork Lovenox for DVT prophylaxis Attestations Medical Necessity Statement*: Needs continued hospitalization for reintroduction of diet, close monitoring for bowel movements, continued IV antibiotic for colitis. Diagnoses Colitis K52.9 Aphasia R47.01 Acute encephalopathy G93.40 Neoplasm of sigmoid colon D49.0 Fatty liver disease, nonalcoholic K76.0 DM type 2 (diabetes mellitus, type 2) E11.9 Chronic respiratory failure with hypoxia and hypercapnia J96.11; J96.12 Time Spent (min) 26
[2023-03-25] MEDS: metoprolol tartrate 25 mg Tablet PO ×2 (08:53→17:31)
[2023-03-25] MEDS: atorvastatin 40 mg Tablet PO (08:53)
[2023-03-25] MEDS: levothyroxine 75 mcg Tablet 37.5 MCG PO (08:53)
--- NOTE | 2023-03-25 10:05 | PC.CHAP ---
Pastoral Care Encounter/Spiritual Assessment Type of Contact [] Declined shochet visit [] Patient/Family/Request visit [] Outpatient visit [] Follow-up visit [] Physician referral [] Code/Alert [x] Routine visit [] Staff referral [] Actively dying [] Patient sleeping [] Family support [] [] Out of room [] Palliative care [] [] Receiving care in room [] Pre-surgical visit [] Trauma [] Long length of stay [] ICU visit [] Other: Relational/Emotional Strength [x] Patient feels connected with others/family/visitors/staff [] Distress [] Loneliness/isolation [] Abandonment Spirituality of Patient [] Person of Meka [] Attends Sabianist of their Meka [] Believes in Prayer [] Reads Bible or Episcopalian materials [] There are Spiritual issues to be addressed Gear Machine Operator Interventions [x] Prayer [x] Active listening [] Non-anxious presence [] Spiritual/emotional support [] Crisis/trauma care [] Spiritual counseling [] Bereavement support [] Provided bereavement packet [] Provided Bible/devotional materials [] Provided toy/stuffed animal, coloring book to patient or family member [] Provided Communion [] Anointing/[place] [] Salvation [] Completed spiritual assessment [] Other: Impact on Illness or Injury [] Angry [] Fearful [] Anxious [] Often cries [] Exhaustion [] Unable to work [] Unable to attend buddhist [] Unable to walk/stand [] Unable to read [] Unable to drive [] Unable to eat/drink [] Unable to sleep [] Unable to be with family [] Patient intubated [] Other: Summary Time spent with patient 15 min
[2023-03-25 11:16] LABS: Glucose Point of Care 149 mg/dL (70-110)
[2023-03-25] MEDS: insulin lispro 100 unit/1 mL SUBCUT (12:09)
[2023-03-25] MEDS: enoxaparin 40 mg/0.4 mL Syringe SUBCUT (12:25)
[2023-03-25] MEDS: pantoprazole 40 mg SDV IVP (12:25)
--- NOTE | 2023-03-25 14:03 | PC.SOCIAL ---
IMM Update pg 2 of IMM updated and reviewed w/ patient. Copy provided and copy dated, initialed and placed in chart.
[2023-03-25 17:19] LABS: Glucose Point of Care 132 mg/dL (70-110)
--- NOTE | 2023-03-25 19:46 | PC.NURSE ---
Left foot noted to be cooler to touch than right foot. Bilateral pedal pulses and cap refill WNL.
[2023-03-25 21:40] LABS: Glucose Point of Care 130 mg/dL (70-110)
[2023-03-26] VITALS (9 sets, daily range): BP systolic 149–152; BP diastolic 74–86; PULSE 68–83; RESP 16–18; TEMP 36.6–37.6; O2SAT 92–99
[2023-03-26] MEDS: ipratropium-albuterol 3 mL Neb INHALATION ×2 (01:51→07:36)
[2023-03-26 04:56] LABS: Basophils % 0.4 %; Eosinophils # 0.1 10^3/uL (0.0-0.8); Eosinophils % 0.8 %; Hematocrit 36.5 % (36-47); Lymphocytes # 0.3 10^3/uL (0.8-4.8); Lymphocytes % 4.2 %; Mean Corpuscular Hemoglobin 27.7 pg (27-33); Mean Corpuscular Volume 95.3 fl (85-98); Mean Platelet Volume 10.9 fL (7.4-10.4); Monocytes % 13.2 %; Neutrophils # 6.13 10^3/uL (1.8-7.7); Nucleated Red Blood Cells % 0 %; Platelet Count 147 10^3/cmm (157-399); Red Blood Count 3.83 10^6/uL (3.85-5.65); White Blood Count 7.57 10^3/uL (3.29-11.43)
[2023-03-26 05:16] LABS: Alanine Aminotransferase 17 U/L (0-33); Albumin Level 2.7 g/dL (3.5-5.2); Alkaline Phosphatase 100 U/L (35-105); Anion Gap 11.3 (5-19); Aspartate Amino Transferase 21 U/L (0-32); Blood Urea Nitrogen 6 mg/dL (8-23); Calcium 8.6 mg/dL (8.5-10.5); Carbon Dioxide 34 mmol/L (22-29); Chloride 96 mmol/L (98-107); Globulin 3.4 g/dL (1.3-4.6); Glucose 135 mg/dL (65-115); Osmolality Calculated 286 mOsm/kg (285-295); Potassium 3.3 mmol/L (3.5-5.1); Sodium 138 mmol/L (136-145); Total Bilirubin 0.6 mg/dL (0.15-1.2); Total Protein 6.1 g/dL (6.6-8.7)
[2023-03-26] MEDS: sodium chloride 0.9% 1,000 ML 75 ML IV (05:53)
[2023-03-26 06:18] LABS: Glucose Point of Care 132 mg/dL (70-110)
[2023-03-26] MEDS: budesonide 0.5 mg/2 mL Neb INHALATION (07:37)
--- NOTE | 2023-03-26 08:21 | PC.NURSE ---
Bladder scan performed per Dr. Aleman with no residual urine detected in bladder.
[2023-03-26] MEDS: sennosides-docusate Tablet 1 TAB PO (08:50)
[2023-03-26] MEDS: atorvastatin 40 mg Tablet PO (08:51)
[2023-03-26] MEDS: potassium chloride ER 20 mEq Tablet 40 MEQ PO (08:51)
[2023-03-26] MEDS: metoprolol tartrate 25 mg Tablet PO (08:52)
[2023-03-26] MEDS: citalopram 20 mg Tablet PO (08:52)
[2023-03-26] MEDS: levothyroxine 75 mcg Tablet 37.5 MCG PO (08:52)
[2023-03-26] MEDS: tamsulosin 0.4 mg Capsule PO (08:53)
[2023-03-26] MEDS: loratadine 10 mg Tablet PO (08:53)
[2023-03-26] MEDS: montelukast sodium 10 mg Tablet PO (08:53)
[2023-03-26] MEDS: piperacillin-tazobactam 3.375 GM in sodium chloride 0.9% (plus) 50 ML IV (08:53)
[2023-03-26] MEDS: polyethylene glycol 3350 Pkt 17 gm PO (08:56)
--- NOTE | 2023-03-26 10:03 | P.DS_ITS ---
Discharge Providers Date of Admission: 03/24/23 12:15 Date of Discharge: March 26, 2023 Attending Provider at Admission: Hector Aleman MD Attending Provider at Discharge: Hector Aleman MD Primary Care Provider: Smith Mallory MD Diagnoses at Discharge Discharge Diagnosis (1) Colitis: Status: Acute (2) Aphasia: Status: Acute (3) Acute encephalopathy: Status: Acute (4) Neoplasm of sigmoid colon: Status: Acute (5) Fatty liver disease, nonalcoholic: Status: Acute (6) DM type 2 (diabetes mellitus, type 2): Status: Acute Permanent problem details: New (7) Chronic respiratory failure with hypoxia and hypercapnia: Status: Acute Reason for Visit Reason for Visit: lethargic Hospital Course Hospital Course Andie is an 82-year-old white female who presents from the nursing facility with history of aphasia, elevated white count, abdominal discomfort. Urinalysis did not show any evidence of infection. Laboratory had elevated white count near 20,000. CT scan of abdomen pelvis showed a thickened area of sigmoid colon, concern for colitis versus mass that abutted the bladder and the vaginal cuff. She had recently had an endoscopy done, where biopsies demonstrated adenoma. She was referred to colorectal surgery but family and patient refused any surgery. I had an extensive discussion with the daughter, who is a power of supervisor hydrochloric area regarding the possibility of this being a colon cancer considering the restrictive nature of it, biopsy results, overall size and growth. She was initially treated with antibiotics and improved with white count coming to normal the next day. She had very little abdominal pain and was able to eat liquids and soft foods and have a bowel movement. I discussed my concern in the future that this may obstruct. Considering the family and the patient's wishes of no surgery it was recommended that they consider hospice. They were excepting of this and she was discharged with hospice consultation back to the nursing facility. She will complete a short course of ciprofloxacin and Flagyl. Questions were answered, family agreed with plan. Physical Exam Narrative: General exam no distress Neck is supple Cardiovascular regular rate and rhythm Lungs clear Abdomen is soft, bowel sounds noted Extremities no sinus clubbing edema Discharge Data Studies Completed and Pending Completed Studies During Hospitalization Category Date Time Status CT abdomen pelvis w con* [id number] Stat Cat Scan 03/24/23 10:[address] angio chest PE protcl [id number] Stat Cat Scan 03/24/23 07:[address] head wo con* [id number] Stat Cat Scan 03/24/23 10:07 Completed XR chest 1V portable [id number] Stat Exams 03/24/23 05:47 Completed Pending at discharge Category Date Time Status Blood Culture Stat Lab 03/24/23 13:40 Results COVID [SARS Covid-2 Antigen] Routine Lab 03/26/23 09:54 Ordered Laboratory Results WBC 7.57 10^3/uL (3.29-11.43) 03/26/23 04:49 RBC 3.83 10^6/uL (3.85-5.65) L 03/26/23 04:49 Hgb 10.60 g/dL (11.27-16.99) L 03/26/23 04:49 Hct 36.5 % (36-47) 03/26/23 04:49 MCV 95.3 fl (85-98) 03/26/23 04:49 MCH 27.7 pg (27-33) 03/26/23 04:49 MCHC 29.0 g/dL (30-55) L 03/26/23 04:49 RDW 15.0 % (12.1-15.1) 03/26/23 04:49 Plt Count 147 10^3/cmm (157-399) L 03/26/23 04:49 MPV 10.9 fL (7.4-10.4) H 03/26/23 04:49 Neut % (Auto) 81.0 % 03/26/23 04:49 Lymph % (Auto) 4.2 % 03/26/23 04:49 Sawyer % (Auto) 13.2 % 03/26/23 04:49 Eos % (Auto) 0.8 % 03/26/23 04:49 Baso % (Auto) 0.4 % 03/26/23 04:49 Neut # (Auto) 6.13 10^3/uL (1.8-7.7) 03/26/23 04:49 Lymph # (Auto) 0.3 10^3/uL (0.8-4.8) L 03/26/23 04:49 Sawyer # (Auto) 1.0 10^3/uL (0.2-0.9) H 03/26/23 04:49 Eos # (Auto) 0.1 10^3/uL (0.0-0.8) 03/26/23 04:49 Baso # (Auto) 0.0 10^3/uL (0.0-0.1) 03/26/23 04:49 Nucleated RBC % (auto) 0 % 03/26/23 04:49 Nucleated RBCs # 0.0 /100WBC 03/26/23 04:49 Specimen Type Arterial 03/24/23 05:52 Sample Site Radial, left 03/24/23 05:52 ABG pH 7.41 (7.35-7.45) 03/24/23 05:52 ABG pCO2 55.4 mmHg (35-45) H 03/24/23 05:52 ABG pO2 66.3 mmHg (80.0-100.0) L 03/24/23 05:52 ABG HCO3 35.0 mmol/L (22-26) H 03/24/23 05:52 ABG O2 Saturation 92.3 03/24/23 05:52 ABG Base Excess 8.6 mmol/L (-2.0-2.0) H 03/24/23 05:52 Casey Test Pos 03/24/23 05:52 A-a O2 Gradient 2.3 mmHg (5-10) L 03/24/23 05:52 Hematocrit 37.7 % (37-47) 03/24/23 05:52 Hgb O2 Saturation 90.6 % (95-100) L 03/24/23 05:52 Carboxyhemoglobin 0.8 %THgb (0.4-20.1) 03/24/23 05:52 Methemoglobin 1.0 % (0.4-1.5) 03/24/23 05:52 Total Hemoglobin 12.3 g/dL (12-16) 03/24/23 05:52 Sodium 135.0 mmol/L (131-143) 03/24/23 05:52 Potassium 4.0 mmol/L (3.5-5.0) 03/24/23 05:52 Glucose 186.0 mg/dL (70-115) H 03/24/23 05:52 Ionized Calcium 1.2 mmol/L (1.1-1.4) 03/24/23 05:52 O2 Delivery Device Nc 03/24/23 05:52 O2 Liters/Min 3.5 % 03/24/23 05:52 Animal Herder ID Gloria 03/24/23 05:52 Sodium 138 mmol/L (136-145) 03/26/23 04:49 Potassium 3.3 mmol/L (3.5-5.1) L 03/26/23 04:49 Chloride 96 mmol/L (98-107) L 03/26/23 04:49 Carbon Dioxide 34 mmol/L (22-29) H 03/26/23 04:49 Anion Gap 11.3 (5-19) 03/26/23 04:49 BUN 6 mg/dL (8-23) L 03/26/23 04:49 Creatinine 0.5 mg/dL (0.5-0.9) 03/26/23 04:49 GFR Calculation Not Reportable 03/26/23 04:49 Glucose 135 mg/dL (65-115) H 03/26/23 04:49 POC Glucose 132 mg/dL (70-110) H 03/26/23 06:10 Calculated Osmolality 286 mOsm/kg (285-295) 03/26/23 04:49 Lactic Acid 1.9 mmol/L (0.5-2.2) 03/24/23 06:00 Calcium 8.6 mg/dL (8.5-10.5) 03/26/23 04:49 Magnesium 2.0 mg/dL (1.7-2.3) 03/25/23 05:04 Total Bilirubin 0.6 mg/dL (0.15-1.2) 03/26/23 04:49 AST 21 U/L (0-32) 03/26/23 04:49 ALT 17 U/L (0-33) 03/26/23 04:49 Alkaline Phosphatase 100 U/L (35-105) 03/26/23 04:49 Ammonia 35 umol/L (11-51) 03/25/23 05:04 Troponin T Baseline 22 ng/L (0-10) H 03/24/23 05:50 Troponin T 120 Minute 22.91 ng/L (0-10) H 03/24/23 07:54 Delta Troponin T 0.91 ABS# (0-10) 03/24/23 07:54 Troponin T Hi Sens 6Hr 22.55 ng/L (0-10) H 03/24/23 11:41 Troponin T Hi Sens 6Hr Delta 0.55 ng/L (0-12) 03/24/23 11:41 NT-Pro-B Natriuret Pep 370 pg/mL (0-450) 03/24/23 05:50 Total Protein 6.1 g/dL (6.6-8.7) L 03/26/23 04:49 Albumin 2.7 g/dL (3.5-5.2) L 03/26/23 04:49 Globulin 3.4 g/dL (1.3-4.6) 03/26/23 04:49 Lipase 9 U/L (13-60) L 03/24/23 07:54 Urine Color Yellow (Yellow) 03/24/23 06:06 Urine Appearance Sl hazy (CLEAR) A 03/24/23 06:06 Urine pH 6 (5-7) 03/24/23 06:06 Ur Specific Sidney 1.015 (1.005-1.030) 03/24/23 06:06 Urine Protein 1+ (Negative) H 03/24/23 06:06 Urine Glucose (UA) Norm (Normal) 03/24/23 06:06 Urine Ketones 1+ (Negative) H 03/24/23 06:06 Urine Blood 2+ (Negative) H 03/24/23 06:06 Urine Nitrate Negative (Negative) 03/24/23 06:06 Urine Bilirubin 1+ (Negative) H 03/24/23 06:06 Urine Urobilinogen 4 mg/dL (Negative) H 03/24/23 06:06 Ur Leukocyte Esterase Negative (Negative) 03/24/23 06:06 Urine RBC 0-4 /hpf (0-2) H 03/24/23 06:06 Urine WBC 5-10 /hpf (0-5) H 03/24/23 06:06 Ur Squamous Epith Cells 5-10 /hpf (0-5) H 03/24/23 06:06 Amorphous Sediment Not Reportable 03/24/23 06:06 Urine Bacteria 1+ /hpf (NONE) H 03/24/23 06:06 Hyaline Casts 0-4 /lpf H 03/24/23 06:06 Urine Mucus Trace /hpf 03/24/23 06:06 Coronavirus 229E (PCR) Not detected (NOT DETECT) 03/24/23 11:20 Influenza Type A Ag negative (Negative) 03/24/23 11:20 Influenza Type B Ag negative (Negative) 03/24/23 11:20 SARS-CoV-2 (PCR) Not detected (NOT DETECT) 03/24/23 11:20 Vitals Last Vital Signs Temp 98.4 F 03/26/23 07:59 Pulse 83 03/26/23 07:59 Resp 18 03/26/23 07:59 BP 152/86 03/26/23 07:59 Pulse Ox 99 03/26/23 07:59 O2 Del Method Nasal Cannula 03/26/23 07:40 O2 Flow Rate 2 03/26/23 07:45 Discharge Plan Discharge Patient Disposition: Xfer SNF Condition: Stable Prescriptions: New ciprofloxacin HCl 500 mg tablet 500 mg PO BID Qty: 14 0RF metronidazole 500 mg tablet 500 mg PO TID Qty: 21 0RF sennosides-docusate sodium [Stool Softener-Laxative] 8.6-50 mg Tablet 1 tab PO BID Qty: 60 0RF Continued melatonin 3 mg tablet 6 mg PO BEDTIME latanoprost 0.005 % drops 1 drp ophthalmic (eye) BEDTIME Rx Instructions: right eye diclofenac sodium [Arthritis Pain (diclofenac)] 1 % gel 2 - 4 g topical BID PRN (Reason: bilat knee pain) acetaminophen [Tylenol] 325 mg Tablet 650 mg PO Q4H PRN (Reason: Pain) sulfasalazine 500 mg Tablet 500 mg PO BID levothyroxine 75 mcg Tablet 37.5 mcg PO DAILY citalopram [Celexa] 20 mg Tablet 20 mg PO DAILY magnesium hydroxide [Milk of Magnesia] 400 mg/5 mL Suspension 30 ml PO DAILY PRN (Reason: unknown) tamsulosin [Flomax] 0.4 mg Capsule 0.4 mg PO QAM bisacodyl 10 mg Suppository 10 mg CA DAILY PRN (Reason: Constipation) gabapentin 300 mg Capsule 300 mg PO BID folic acid 1 mg Tablet 1 mg PO DAILY montelukast [Singulair] 10 mg Tablet 10 mg PO DAILY loratadine 10 mg Tablet 10 mg PO DAILY metoprolol tartrate 25 mg Tablet 25 mg PO BID hydrogen peroxide 3 % Solution See Rx Instructions .ROUTE .COMPLEX Rx Instructions: apply 5 drops in both ears one time only as needed to soften wax in ears A and D Ointment See Rx Instructions .ROUTE .COMPLEX Rx Instructions: apply topically one time a day to shear to left gluteal and prn until healed Vitamin B-12 1,000 mcg/mL Solution 1,000 mcg IM Q30D Fleet Enema 19-7 gram/118 mL Enema 118 ml CA DAILY PRN (Reason: Constipation) Nitrostat 0.4 mg Tablet, Sublingual 0.4 mg SUBLINGUAL Q5M PRN (Reason: Chest Pain) Rx Instructions: do not exceed 3 doses per episode Mylanta 200-200-20 mg/5 mL Suspension 30 ml PO Q4H PRN (Reason: unknown) nystatin 100,000 unit/gram Powder 1 applic TOPICAL BID PRN (Reason: folds) Humira 40 mg/0.8 mL Syringe Kit 40 mg SUBCUT Q7D Artificial Tears(pvalch-povid) 0.5-0.6 % Drops 1 drp ophthalmic (eye) Q12H Trelegy Ellipta 100-62.5-25 mcg Blister With Device 1 inh INHALATION DAILY polyethylene glycol 3350 [Miralax] 17 gram Powder In Packet 17 g PO DAILY pantoprazole [Protonix] 40 mg tablet,delayed release (DR/EC) 40 mg PO DAILY rosuvastatin [Crestor] 10 mg tablet 10 mg PO DAILY Discontinued Senna-S 8.6-50 mg Tablet 1 tab PO DAILY Ultram 50 mg Tablet 50 mg PO BEDTIME Ultram 50 mg Tablet 50 mg PO TID PRN (Reason: Pain) Discharge Orders: Discharge Order (Routine); Ordered 03/26/23 Ordered By: Hector Aleman Referrals: [facility] [Other] [facility] [Outside] Smith Mallory MD [Primary Care Provider] - 4-7 days Discharge Diet: GI Soft Discharge Activity: Increase activity as tolerated Patient Instructions: Opioid Safety Activity Restrictions/Additional Instructions: Take all medicine as prescribed Referral to hospice on discharge. Soft diet Finish antibiotics as prescribed Discharge Attestations Time Spent in Discharge Care*: greater than 30 min (32) Quality Metrics Clinical Quality Measures [ No reported AMI, CVA or VTE this stay] Coding Level of Care Code 94795 Total time (in minutes) for Discharge: 32 Diagnoses Colitis K52.9 Aphasia R47.01 Acute encephalopathy G93.40 Neoplasm of sigmoid colon D49.0 Fatty liver disease, nonalcoholic K76.0 DM type 2 (diabetes mellitus, type 2) E11.9 Chronic respiratory failure with hypoxia and hypercapnia J96.11; J96.12
[2023-03-26 10:43] LABS: SARS Covid-2 Antigen negative (Negative)
--- NOTE | 2023-03-26 10:57 | PC.NURSE ---
Report called to Leandra GONZALES at [facility].
[2023-03-26 11:14] LABS: Glucose Point of Care 126 mg/dL (70-110)
[2023-03-26] MEDS: enoxaparin 40 mg/0.4 mL Syringe SUBCUT (13:00)
--- NOTE | 2023-03-26 14:46 | PC.NURSE ---
EMS here to transport pt to [facility]. This nurse phones [facility] to let them know that pt is on the way.
[2023-03-26] MEDS: acetaminophen 325 mg Tablet 650 MG PO (14:50)
== END 2023-03-26 14:59 | disposition skilled nursing facility (03) | DRG 391 ==
LOC: ER 05:58 → MEDSURG 12:19
PROVIDERS: Admitting Provider Internal Medicine; Emergency Provider Family Medicine; PCP Family Medicine; Visit Provider Internal Medicine
DX: K52.9 Noninfective gastroenteritis and colitis, unspecified (principal); G93.41 Metabolic encephalopathy; R47.01 Aphasia; J96.12 Chronic respiratory failure with hypercapnia; J96.11 Chronic respiratory failure with hypoxia; I50.32 Chronic diastolic (congestive) heart failure; D49.0 Neoplasm of unspecified behavior of digestive system; E11.9 Type 2 diabetes mellitus without complications; K76.0 Fatty (change of) liver, not elsewhere classified; M06.9 Rheumatoid arthritis, unspecified; G47.33 Obstructive sleep apnea (adult) (pediatric); E03.9 Hypothyroidism, unspecified; E78.5 Hyperlipidemia, unspecified; J44.9 Chronic obstructive pulmonary disease, unspecified; I25.10 Atherosclerotic heart disease of native coronary artery without angina pectoris; I11.0 Hypertensive heart disease with heart failure; G30.9 Alzheimer's disease, unspecified; F02.80 Dementia in other diseases classified elsewhere, unspecified severity, without behavioral disturbance, psychotic disturbance, mood disturbance, and anxiety
CPT/HCPCS: 36415; 36416; 36600; 51798; 70450; 71045; 71275; 74177; 80051; 80053; 81001; 82140; 82330; 82805; 82962; 83605; 83690; 83735; 83880; 84484; 85025; 87040; 87426; 87635; 87804; 93005; 94640; 96372; 96374; 96375; 99285; C9113; J0744; J1650; J1815; J1940; J2310; J2543; J3490; J7030; J7626; Q9967